=== PATIENT | male | born 2000 | race Caucasian/White ===

== ENCOUNTER 2021-09-15 08:27 | Inpatient (IN) ==
[2021-09-15] MEDS ORDERED: SODIUM CHLORIDE 0.9% 1000ML 1,000 ML IV STA (08:43)
--- NOTE | 2021-09-15 09:04 | Emergency Department Note ---
Impression & Plan Colitis, Hematochezia, Generalized abdominal pain, Severe anemia ED Provider Note INFORMANT: Patient and mother ED PROVIDER(S): Rashad Hansen MD CHIEF COMPLAINT: Diarrhea, bloody PLAN: Disposition: Admitted Condition: Good Outpatient prescription management: none Referral: None MEDICAL DECISION MAKING: Patient presented because of bloody diarrhea. Stool studies ordered. Lab work and CT imaging ordered. Patient was hydrated. CBC reveals a significant anemia. Chemistry panel was unremarkable. Stool studies negative. Patient was reassessed and was stable. His CAT scan revealed a significant colitis. Consultation was made with Dr. Dutton of gastroenterology. He recommended 40 mg of Solu-Medrol twice daily. Patient will need further management by GI and internal medicine in the hospital. I did discuss case with the [facility], Dr. Montgomery. Patient was evaluated in the ER admitted for further management. Triage Nursing notes reviewed and agree them. Vital Signs: reviewed and remarkable for no significant abnormalities Differential diagnosis: Inflammatory bowel disease, infectious diarrhea, diverticulosis, AVM, coagulopathy, colitis, malignancy, Roxy-Duong tear, esophagitis, peptic ulcer disease, variceal bleed, gastritis, epistaxis, fissure, hemorrhoids, as well as other pathologies. Diagnostics interpreted by me: ECG: none Cardiac Monitoring: Cardiac monitoring ordered by me: The patient was placed on continuous cardiac monitoring and observed. It revealed a normal sinus rhythm at 80 beats per minute without ectopy or evidence of dysrhythmia. Imaging studies: CT abdomen and pelvis with contrast: Wall thickening of the entire colon and rectum consistent with a proctocolitis. Wall thickening most pronounced within the ascending colon and hepatic flexure of the colon. Associated distal ileal wall thickening. Ahaustral appearance of the colon. Ulcerative colitis with backwash ileitis is favored. An infectious proctocolitis cord appear similar although is considered less likely. Multiple enlarged colonic/ileocolic lymph nodes are probably reactive however a neoplastic process cannot be completely excluded in the setting of ulcerative colitis. Multifocal luminal narrowing within the right colon is likely due to inflammation although underlying mucosal lesion cannot be excluded. GI consultation for consideration for colonoscopy is recommended. HPI: The patient is a 21year old male who presents to the Emergency Room with complaints of bloody diarrhea. This started over a month ago and is worsening. Patient states he has history of celiac disease. He has been dealing with that for about 10 years. He originally notes not wanting to change his diet however over the last 4 months has made significant modifications without any help. Its been about 2 years since he seen GI. The patient also notes the following associated symptoms, lightheadedness and an episode of syncope last night after becoming lightheaded from a bloody bowel movement. The patient has taken no medication forrelieving factors. Current pain is rated as 2/10. Notes pain was a 6 out of 10. Pt denies LOC, headache, fevers, chills, diaphoresis, visual changes, neck pain, chest pain, breathing difficulties, nausea, vomiting, abdominal pain, back pain, melena, hematochezia, urinary symptoms, numbness, weakness, lymphadenopathy, rash, or other complaints. ROS: See above HPI for pertinent positives & negatives. A total of 10 systems reviewed and were otherwise negative. PAST MEDICAL HISTORY:See Below , celiac disease PAST SURGICAL HISTORY:See Below, FAMILY HISTORY:See Below SOCIAL HISTORY:See Below, lives with family HOME MEDICATIONS:See Below ALLERGIES:See Below VITALS:See Below PHYSICAL EXAMINATION: GENERAL: Awake, alert, well-appearing, in no distress HENT: Normocephalic, atraumatic. Wearing a mask. EYES: Pale conjunctiva. Sclera non-icteric. NECK: Inspection normal. Non-tender. Supple. No nuchal rigidity. FROM. No masses. RESPIRATORY: Clear to auscultation. No wheezes. No rales. Normal respiratory effort. CARDIAC: Normal rate. Normal rhythm. No murmurs. No rubs. Extremities warm and well perfused. Pulses equal. No JVD. GI: Soft, non-distended. Minimal left lower quadrant and mild right sided tenderness to palpation. No rebound or guarding. No masses. RECTAL: Deferred. MUSCULOSKELETAL: Atraumatic. Chest examination reveals no tenderness. The back is symmetrical on inspection without obvious abnormality. There is no CVA tenderness to palpation. No joint edema. LOWER EXTREMITIES: Calves are equal size bilaterally and non-tender. No edema. No discoloration. NEURO: Normal sensorium. No sensory or motor deficits noted. SKIN: No rash or jaundice noted. Rashad Hansen MD Past Med/Surg History Social History Smoking Status: Never smoker Feels Safe at Home: Yes Allergies Allergies Allergy/AdvReac Type Severity Reaction Status Date / Time No Known Allergies Allergy Unverified 09/15/21 13:57 Home Meds Home Medications Medication Instructions Recorded Confirmed dicyclomine 10 mg capsule 10 mg PO BID 09/15/21 09/15/21 dietary supplement 1 tab PO DAILY 09/15/21 09/15/21 Results & Data (ED) Vital Signs Vital Signs - 24 hr 09/15/21 08:30 09/15/21 09:08 09/15/21 10:43 Temperature 36.8 C Temperature Source Temporal Artery Scan Pulse Rate 92 H 80 Pulse Rate [Radial] 80 93 H Pulse Rhythm [Radial] Regular Pulse Strength [Radial] Absent Respiratory Rate 20 16 20 Respiratory Effort / Characteristics Non-Labored Spontaneous Non-Labored Spontaneous Non-Labored Respiratory Depth Normal Normal Normal Respiratory Pattern Regular Regular Blood Pressure 112/69 Blood Pressure [Left Arm] 120/76 119/72 Blood Pressure Mean 83 Blood Pressure Mean [Left Arm] 90 87 Blood Pressure Position [Left Arm] Sitting Pulse Oximetry 99 98 100 Oxygen Delivery Method Room Air Room Air Room Air Sepsis Recent Fever Within 48 Hours No Sepsis New/Unexplained Change in Mental Status No Sepsis Action Taken by Nursing No Action Required 09/15/21 12:29 09/15/21 13:38 09/15/21 14:37 Temperature Temperature Source Pulse Rate Pulse Rate [Radial] 82 80 86 Pulse Rhythm [Radial] Regular Pulse Strength [Radial] Normal Respiratory Rate 20 15 20 Respiratory Effort / Characteristics Non-Labored Non-Labored Spontaneous Non-Labored Respiratory Depth Normal Normal Normal Respiratory Pattern Regular Blood Pressure Blood Pressure [Left Arm] 116/69 123/61 116/92 Blood Pressure Mean Blood Pressure Mean [Left Arm] 84 81 100 Blood Pressure Position [Left Arm] Sitting Pulse Oximetry 99 100 100 Oxygen Delivery Method Room Air Room Air Room Air Sepsis Recent Fever Within 48 Hours Sepsis New/Unexplained Change in Mental Status Sepsis Action Taken by Nursing Laboratory Data Result diagrams: 09/15/21 08:45 09/15/21 08:45 Lab Results 09/15/21 09/15/21 09/15/21 Range/Units 08:45 08:45 09:35 WBC 8.40 (4.8-10.8) K/uL RBC 4.73 (4.7-6.1) M/uL Hgb 7.2 L (14.0-18.0) g/dL Hct 28.0 L (42-52) % MCV 59.2 L (80-100) fL MCH 15.2 L (25-34) pg MCHC 25.7 L (32-36) g/dL RDW Std Deviation 40.9 (36.4-46.3) fL RDW Coeff of Erica 19.0 H (11.5-14.5) % Plt Count 704 H (130-400) K/uL MPV 9.0 (7.4-10.4) fL Immature Gran % (Auto) 0.1 % Neut % (Auto) 64.2 % Lymph % (Auto) 18.3 % Williams % (Auto) 13.7 % Eos % (Auto) 3.0 % Baso % (Auto) 0.7 % Neut # (Auto) 5.39 (1.4-6.5) K/uL Lymph # (Auto) 1.54 (1.2-3.4) K/uL Williams # (Auto) 1.15 H (0.11-0.59) K/uL Eos # (Auto) 0.25 (0-0.5) K/uL Baso # (Auto) 0.06 (0-0.2) K/uL Immature Gran # (Auto) 0.01 (0.00-0.02) K/uL Hypochromasia Present Microcytosis Present Sodium 135 L (136-145) mmol/L Potassium 4.0 (3.5-5.1) mmol/L Chloride 105 (98-107) mmol/L Carbon Dioxide 24 (21-32) mmol/L Anion Gap 6 (3-11) BUN 5 L (6-23) mg/dl Creatinine 0.95 (0.6-1.4) mg/dl Est Cr Clr Drug Dosing 90.5 ml/min Est GFR ( Amer) 133.0 ml/min Est GFR (Non-Af Amer) 114.8 ml/min BUN/Creatinine Ratio 5.3 L (10-20) Glucose 125 H (70-99(Fasting)) mg/dl Calcium 8.9 (8.5-10.1) mg/dl Total Bilirubin 0.3 (0.2-1.0) mg/dl AST 16 (13-39) U/L ALT 9 (7-52) U/L Alkaline Phosphatase 92 (34-104) U/L Total Protein 8.1 (6.0-8.3) gm/dl Albumin 4.0 (3.4-5.0) gm/dl Globulin 4.1 H (2.5-4.0) gm/dl Albumin/Globulin Ratio 1.0 (0.9-2) Lipase 20 (11-82) U/L Urine Color Urine Appearance (Clear) Urine pH (4.5-7.5) Ur Specific [place] (1.000-1.030) Urine Protein (Negative) Urine Glucose (UA) (Negative) Urine Ketones (Negative) Urine Blood (Negative) Urine Nitrite (Negative) Urine Bilirubin (Negative) Urine Urobilinogen (Negative) Ur Leukocyte Esterase (Negative) Stl C. cayetanensis PCR Not Detected (NotDetected) Stool Rotavirus A PCR Not Detected (NotDetected) Stl Adenov F 40/41 PCR Not Detected (NotDetected) Stool Astrovirus (PCR) Not Detected (NotDetected) Stool Campylobacter PCR Not Detected (NotDetected) Stl C. diff Tox A/B PCR Not Detected (NotDetected) Stool Cryptosporidium PCR Not Detected (NotDetected) Stl E.coli Shiga Tox PCR Not Detected (NotDetected) Stl Enterotoxigenic E PCR Not Detected (NotDetected) Stool EPEC (PCR) Not Detected (NotDetected) Stool EAEC (PCR) Not Detected (NotDetected) Stl E. histolytica PCR Not Detected (NotDetected) Stool Giardia Lamblia PCR Not Detected (NotDetected) Stool Salmonella PCR Not Detected (NotDetected) Stool Sapovirus (PCR) Not Detected (NotDetected) Stl P. shigelloides PCR Not Detected (NotDetected) Stl Shigella/EIEC PCR Not Detected (NotDetected) St Y.enterocolitica PCR Not Detected (NotDetected) Stool Vibrio (PCR) Not Detected (NotDetected) Stl Vibrio cholerae PCR Not Detected (NotDetected) Stl Norovirus GI/GII PCR Not Detected (NotDetected) SARS-CoV-2, RNA, NAAT (NEGATIVE) Blood Type Antibody Screen 09/15/21 09/15/21 09/15/21 Range/Units 10:49 13:16 13:21 WBC (4.8-10.8) K/uL RBC (4.7-6.1) M/uL Hgb (14.0-18.0) g/dL Hct (42-52) % MCV (80-100) fL MCH (25-34) pg MCHC (32-36) g/dL RDW Std Deviation (36.4-46.3) fL RDW Coeff of Erica (11.5-14.5) % Plt Count (130-400) K/uL MPV (7.4-10.4) fL Immature Gran % (Auto) % Neut % (Auto) % Lymph % (Auto) % Williams % (Auto) % Eos % (Auto) % Baso % (Auto) % Neut # (Auto) (1.4-6.5) K/uL Lymph # (Auto) (1.2-3.4) K/uL Williams # (Auto) (0.11-0.59) K/uL Eos # (Auto) (0-0.5) K/uL Baso # (Auto) (0-0.2) K/uL Immature Gran # (Auto) (0.00-0.02) K/uL Hypochromasia Microcytosis Sodium (136-145) mmol/L Potassium (3.5-5.1) mmol/L Chloride (98-107) mmol/L Carbon Dioxide (21-32) mmol/L Anion Gap (3-11) BUN (6-23) mg/dl Creatinine (0.6-1.4) mg/dl Est Cr Clr Drug Dosing ml/min Est GFR ( Amer) ml/min Est GFR (Non-Af Amer) ml/min BUN/Creatinine Ratio (10-20) Glucose (70-99(Fasting)) mg/dl Calcium (8.5-10.1) mg/dl Total Bilirubin (0.2-1.0) mg/dl AST (13-39) U/L ALT (7-52) U/L Alkaline Phosphatase (34-104) U/L Total Protein (6.0-8.3) gm/dl Albumin (3.4-5.0) gm/dl Globulin (2.5-4.0) gm/dl Albumin/Globulin Ratio (0.9-2) Lipase (11-82) U/L Urine Color Yellow Urine Appearance Clear (Clear) Urine pH 5.0 (4.5-7.5) Ur Specific [place] 1.010 (1.000-1.030) Urine Protein Negative (Negative) Urine Glucose (UA) Negative (Negative) Urine Ketones Negative (Negative) Urine Blood Negative (Negative) Urine Nitrite Negative (Negative) Urine Bilirubin Negative (Negative) Urine Urobilinogen Negative (Negative) Ur Leukocyte Esterase Negative (Negative) Stl C. cayetanensis PCR (NotDetected) Stool Rotavirus A PCR (NotDetected) Stl Adenov F 40/41 PCR (NotDetected) Stool Astrovirus (PCR) (NotDetected) Stool Campylobacter PCR (NotDetected) Stl C. diff Tox A/B PCR (NotDetected) Stool Cryptosporidium PCR (NotDetected) Stl E.coli Shiga Tox PCR (NotDetected) Stl Enterotoxigenic E PCR (NotDetected) Stool EPEC (PCR) (NotDetected) Stool EAEC (PCR) (NotDetected) Stl E. histolytica PCR (NotDetected) Stool Giardia Lamblia PCR (NotDetected) Stool Salmonella PCR (NotDetected) Stool Sapovirus (PCR) (NotDetected) Stl P. shigelloides PCR (NotDetected) Stl Shigella/EIEC PCR (NotDetected) St Y.enterocolitica PCR (NotDetected) Stool Vibrio (PCR) (NotDetected) Stl Vibrio cholerae PCR (NotDetected) Stl Norovirus GI/GII PCR (NotDetected) SARS-CoV-2, RNA, NAAT NEGATIVE (NEGATIVE) Blood Type A Positive Antibody Screen NEGATIVE Administered Medications Discontinued Medications Sodium Chloride (Nss 1000ml) 1,000 mls @ 999 mls/hr IV .Q1H1M STA Stop: 09/15/21 09:43 Last Infusion: 09/15/21 10:07 Dose: 0 mls/hr Documented by: [id number] Admin: 09/15/21 08:48 Dose: 999 mls/hr Documented by: [id number] Ioversol (Optiray 320 100ml) 94 ml IV ONCE ONE Stop: 09/15/21 11:46 Last Admin: 09/15/21 11:45 Dose: 94 ml Documented by: [id number] Methylprednisolone (Methylprednisolone 40 Mg/Ml Vial) 40 mg IV NOW STA Stop: 09/15/21 13:35 Last Admin: 09/15/21 13:58 Dose: 40 mg Documented by: [id number] Imaging Data Radiologist's Impression: Abdomen/Pelvis CT 09/15/21 08:43 CT OF THE ABDOMEN AND PELVIS WITH CONTRAST CLINICAL HISTORY: Bloody diarrhea. Abdominal pain. COMPARISON STUDY: KUB May 24, 2011. TECHNIQUE: Following IV administration of 94 mL of Optiray, axial images of the abdomen and pelvis were obtained from the lung bases to the proximal femurs. Images were reviewed in the axial, sagittal, and coronal planes. IV contrast was administered without complication. Automated exposure control was utilized for the study. A dose lowering technique was utilized adhering to the principles of ALARA. Oral contrast was administered. CT DOSE: 280.60 mGy.cm FINDINGS: Lung bases are unremarkable. Periportal edema within the liver is noted. No biliary or pancreatic ductal dilatation is present. There are no hepa tic lesions. The spleen, adrenal glands, kidneys and pancreas are normal. No hydronephrosis. Major vasculature is patent. The appendix is unremarkable. There is no evidence for a bowel obstruction. Note is made of wall thickening of the entire colon and the rectum. Ahaustral appearance of the colon is noted. The wall thickening is most pronounced within the ascending colon and hepatic flexure of the colon. This results in minimal narrowing. No evidence for a bowel obstruction. There are numerous enlarged pericolonic and ileocolic lymph nodes. Index ileocolic node measures 1.9 x 1.1 cm. There is no free air. There is no abscess. No evidence for small bowel obstruction. There is also wall thickening of the terminal ileum. This could reflect backwash ileitis. IMPRESSION: Wall thickening of the entire colon and rectum consistent with a p roctocolitis. Wall thickening most pronounced within the ascending colon and hepatic flexure of the colon. Associated distal ileal wall thickening. Ahaustral appearance of the colon. Ulcerative colitis with backwash ileitis is favored. An infectious proctocolitis cord appear similar although is considered less likely. Multiple enlarged colonic/ileocolic lymph nodes are probably reactive however a neoplastic process cannot be completely excluded in the setting of ulcerative colitis. Multifocal luminal narrowing within the right colon is likely due to inflammation although underlying mucosal lesion cannot be excluded. GI consultation for consideration for colonoscopy is recommended. ACT 112: Negative or not required by law. Electronically signed by: Maycol Prieto M.D. 09/15/2021 1:12 PM Discharge Plan Visit Data Chief Complaint: Diarrhea Stated Complaint: DIARRHEA, ABD PAIN, BLOOD IN STOOL ED Provider: Rashad Hansen Discharge Problem: Colitis, Hematochezia, Generalized abdominal pain, Severe anemia Forms Stand Alone Forms: My [facility]antto Prescriptions Prescriptions: No Action dicyclomine 10 mg capsule 10 mg PO BID RF: 0 dietary supplement Tablet 1 tab PO DAILY RF: 0 Referrals Referrals: Bill Murcia MD [Physician] -
[2021-09-15 09:37] LABS: Basophils # (auto) 0.06 K/uL (0-0.2); Basophils % (auto) 0.7 %; Eosinophils # (auto) 0.25 K/uL (0-0.5); Hemoglobin 7.2 g/dL (14.0-18.0); Hypochromasia Present; Immature Granulocytes # (auto) 0.01 K/uL (0.00-0.02); Immature Granulocytes % (auto) 0.1 %; Lymphocytes # (auto) 1.54 K/uL (1.2-3.4); Lymphocytes % (auto) 18.3 %; Mean Corpuscular Hemoglobin 15.2 pg (25-34); Mean Corpuscular Hgb Conc 25.7 g/dL (32-36); Mean Corpuscular Volume 59.2 fL (80-100); Microcytosis Present; Monocytes # (auto) 1.15 K/uL (0.11-0.59); Monocytes % (auto) 13.7 %; Neutrophils # (auto) 5.39 K/uL (1.4-6.5); Neutrophils % (auto) 64.2 %; Platelet Count 704 K/uL (130-400); RDW Standard Deviation 40.9 fL (36.4-46.3); Red Blood Count 4.73 M/uL (4.7-6.1)
[2021-09-15 09:40] LABS: BUN Creatinine Ratio 5.3 (10-20); Bilirubin,Total 0.3 mg/dl (0.2-1.0); Calcium 8.9 mg/dl (8.5-10.1); Creatinine Clr Calc Pharmacy 90.5 ml/min; Est GFR (Non-African American) 114.8 ml/min; Globulin 4.1 gm/dl (2.5-4.0); Total Protein 8.1 gm/dl (6.0-8.3)
[2021-09-15 11:15] LABS: Adenovirus F 40/41 PCR Not Detected (NotDetected); Astrovirus PCR Not Detected (NotDetected); Campylobacter PCR Not Detected (NotDetected); Clostridium diff Toxin A/B PCR Not Detected (NotDetected); Cryptosporidium PCR Not Detected (NotDetected); Cyclospora cayetanensis PCR Not Detected (NotDetected); Entamoeba histolytica PCR Not Detected (NotDetected); Enteroaggregative E.coli(EAEC) Not Detected (NotDetected); Enteropathogenic E.coli (EPEC) Not Detected (NotDetected); Enterotoxigenic E.coli (ETEC) Not Detected (NotDetected); Giardia lamblia PCR Not Detected (NotDetected); Norovirus GI/GII PCR Not Detected (NotDetected); Plesiomonas shigelloides PCR Not Detected (NotDetected); Rotavirus A PCR Not Detected (NotDetected); Salmonella PCR Not Detected (NotDetected); Sapovirus PCR Not Detected (NotDetected); Shiga-like Toxin E.coli (STEC) Not Detected (NotDetected); Shigella/Enteroinvasive E.coli Not Detected (NotDetected); Vibrio cholerae PCR Not Detected (NotDetected); Vibrio species PCR Not Detected (NotDetected); Yersinia enterocolitica PCR Not Detected (NotDetected)
[2021-09-15 11:21] LABS: Appearance Urine Clear (Clear); Bilirubin Urine Negative (Negative); Blood Urine Negative (Negative); Color Urine Yellow; Glucose Urine UA Negative (Negative); Ketones Urine Negative (Negative); Leukocyte Esterase Urine Negative (Negative); Nitrite Urine Negative (Negative); Protein Urine Negative (Negative); Urobilinogen Urine Negative (Negative)
[2021-09-15] MEDS ORDERED: OPTIRAY 320 100ml IV ONE (11:45)
--- NOTE | 2021-09-15 13:14 | CT Scan Report ---
CT OF THE ABDOMEN AND PELVIS WITH CONTRAST CLINICAL HISTORY: Bloody diarrhea. Abdominal pain. COMPARISON STUDY: KUB May 24, 2011. TECHNIQUE: Following IV administration of 94 mL of Optiray, axial images of the abdomen and pelvis we re obtained from the lung bases to the proximal femurs. Images were reviewed in the axial, sagittal, and coronal planes. IV contrast was administered without complication. Automated exposure control wa s utilized for the study. A dose lowering technique was utilized adhering to the principles of ALARA . Oral contrast was administered. CT DOSE: 280.60 mGy.cm FINDINGS: Lung bases are unremarkable. Periportal edema within the liver is noted. No biliary or panc reatic ductal dilatation is present. There are no hepatic lesions. The spleen, adrenal glands, kidney s and pancreas are normal. No hydronephrosis. Major vasculature is patent. The appendix is unremarkab le. There is no evidence for a bowel obstruction. Note is made of wall thickening of the entire colon and the rectum. Ahaustral appearance of the colon is noted. The wall thickening is most pronounced w ithin the ascending colon and hepatic flexure of the colon. This results in minimal narrowing. No priscilla dence for a bowel obstruction. There are numerous enlarged pericolonic and ileocolic lymph nodes. Ind ex ileocolic node measures 1.9 x 1.1 cm. There is no free air. There is no abscess. No evidence for s mall bowel obstruction. There is also wall thickening of the terminal ileum. This could reflect backw sophia ileitis. IMPRESSION: Wall thickening of the entire colon and rectum consistent with a proctocolitis. Wall thi ckening most pronounced within the ascending colon and hepatic flexure of the colon. Associated dista l ileal wall thickening. Ahaustral appearance of the colon. Ulcerative colitis with backwash ileitis is favored. An infectious proctocolitis cord appear similar although is considered less likely. Multi ple enlarged colonic/ileocolic lymph nodes are probably reactive however a neoplastic process cannot be completely excluded in the setting of ulcerative colitis. Multifocal luminal narrowing within the right colon is likely due to inflammation although underlying mucosal lesion cannot be excluded. GI c onsultation for consideration for colonoscopy is recommended. ACT 112: Negative or not required by law. Electronically signed by: Maycol Prieto M.D. 09/15/2021 1:12 PM
--- NOTE | 2021-09-15 16:59 | History and Physical Report ---
DATE OF ADMISSION: 09/15/2021. CHIEF COMPLAINT: Bloody diarrhea, syncope. HISTORY OF PRESENT ILLNESS: This is a 21-year-old male with past medical history significant for GERD, Asperger's disorder, history of maturity onset diabetes, currently not on any medication, history of celiac disease diagnosed many years ago. He was noncompliant with diet, but since last 4-5 months he is started to be on a celiac diet, but his symptoms of abdominal pain, cramps and diarrhea did not got better, it got worse and in the last 1 or 2 weeks he is having bloody diarrhea. Last night there was lot of amount of blood in the stool, after that he felt blank and he think he might have passed out and somehow crawled to the bed and slept for 1 hour that is the reason he came to the hospital. Here his hemoglobin was 7.2. CAT scan showing possible ulcerative colitis. ER talked with GI on-call and recommended Solu-Medrol. Currently, resting comfortably, hemodynamically stable. He looks pale. Denies any headache. No dizziness, no blurred visions, no earache, no runny nose, no sore throat, no cough, no fevers, no chest pain, no shortness of breath. No nausea, no vomiting. Normal bladder movements. No swelling in the legs. Ambulates okay. The patient initially declined to sign the blood consent but later he was ok and signed the consent. ALLERGIES: POLLEN, RAGWEED, CELIAC GLUTEN FREE DIET. PAST MEDICAL HISTORY: As mentioned above. PAST SURGICAL HISTORY: Circumcision, upper endoscopy with biopsy. MEDICATIONS: The patient is on dicyclomine 10 mg b.i.d. FAMILY HISTORY: Significant for paternal grandmother had stomach cancer; maternal grandfather had diabetes. Mother has diabetes, maternal grandfather has heart attack at age of 58. SOCIAL HISTORY: Single, lives with his mom. No smoking, no alcohol, no drug use. REVIEW OF SYSTEMS: As per HPI. Rest of review of systems is negative. PHYSICAL EXAMINATION: GENERAL: The patient is thin and frail, not in acute distress. VITAL SIGNS: Temperature 36.8, pulse 86, respiratory rate 20, blood pressure 116/92, oxygen 98% on room air. HEENT: Pupils equal, round and reactive to light. Oral mucosa moist. LUNGS: No JVD, no neck masses. CARDIOVASCULAR: S1 and S2 heard. Regular rate and rhythm. No murmur, no gallop. RESPIRATORY SYSTEM: Normal AP diameter. No accessory muscle use. No wheezing, no crackles. ABDOMEN: Soft. Bowel sounds are present, nontender, no distention. CENTRAL NERVOUS SYSTEM: Cranial nerves II-XII grossly intact, nonfocal. EXTREMITIES: No edema, no erythema. LABORATORY: WBC 8.4, hemoglobin 7.2, hematocrit 22, platelets 704. Sodium 135, potassium 4, chloride 105, bicarb 24, BUN 5, creatinine 0.9, serum glucose 125, calcium 8.9, total bilirubin 0.3, AST 16, ALT 9, alkaline phosphatase 92, lipase 20. Urinalysis negative. Stool cultures negative. SARS-CoV-2 RNA negative. IMAGING: CT of abdomen and pelvis, wall thickening of the entire colon and rectum consistent with proctocolitis, wall thickening most pronounced within the ascending colon and hepatic flexure of the colon, associated distal ileal wall thickening, ulcerative colitis/ileitis is favored, infectious proctocolitis appear similar though, all this is considered less likely. Multiple enlarged colonic and inguinal lymph nodes are probably reactive; however, neoplastic process cannot be completely excluded. GI consultation recommended. ASSESSMENT AND PLAN: This 21-year-old male who presents with bloody diarrhea going on for the last couple of weeks. CAT scan showing colitis, possible ulcerative colitis. 1. Possible ulcerative colitis, bloody diarrhea going on. He was diagnosed with celiac disease many years ago, noncompliant with diet, 4-6 months ago started on diet, but since symptoms are not getting better and having blood in stools came to ER. ER called GI on-call and recommended Solu-Medrol 40 b.i.d. which will be continued. We will give him clear liquid diet for now. IV fluids, IV Dilaudid 0.5 mg q. 6 hours p.r.n. Consult GI for further recommendation, placed on IV Protonix 40 b.i.d. for now. 2. Anemia, most likely acute blood loss anemia. The patient initially declined to sign blood consent but later signed. We will follow H and H for 6 hours. Will transfuse if hb <7.0 We will check iron studies, vitamin B12, folate levels. If iron is low may need IV Venofer while in the hospital. 3. History of maturity onset diabetes mellitus in young. His HbA1c is 6.5 in 10/2020. Not on medications. With anemia his HbA1c will not be accurate, we will follow the blood sugars, needs to follow with family doctor. 4. Syncope. The patient also had an episode of possible syncope, most likely vasovagal. We will monitor in tele floor. If any concern, will get echocardiogram. 5. Deep venous thrombosis prophylaxis: Sequential compression devices. DISPOSITION: Closely monitor in med tele. PT/OT prior to discharge. Social Service to help with discharge planning. Job ID: [id number] LUCIANO
[2021-09-15] MEDS ORDERED: HYDROmorphone INJ 0.5 MG/0.5 ML SYR IV PRN (18:20)
[2021-09-15] MEDS ORDERED: ACETAMINOPHEN 325 MG TAB PO PRN (18:20)
[2021-09-15] MEDS ORDERED: NITROGLYCERIN SL 0.4 MG/TAB TAB SL PRN (18:20)
[2021-09-15] MEDS: SODIUM CHLORIDE 0.9% 1000ML 1,000 ML IV SCH (18:31)
[2021-09-15 19:35] LABS: Iron < 10 mcg/dl (35-175); Unsaturated Iron Binding Cap 479 mcg/dl (155-355)
[2021-09-15 19:36] LABS: Hematocrit (blood only) 27.6 % (42-52); Hemoglobin 7.4 g/dL (14.0-18.0)
[2021-09-15 19:45] LABS: Folate (Folic Acid) > 22.30 ng/ml (>5.38)
[2021-09-15 19:46] LABS: Vitamin B12 762 pg/ml (180-914)
[2021-09-15] MEDS: PANTOprazole 40 MG in SYRINGE 0 ML IV SCH (22:22)
[2021-09-15] MEDS: DICYCLOMINE HCL 10 MG CAP PO SCH (22:22)
[2021-09-15] MEDS: methylPREDNISolone 40 MG in SYRINGE 0 ML IV SCH (22:22)
[2021-09-15] MEDS ORDERED: CARBOHYDRATES FOR HYPOGLYCEMIA PO PRN (23:05)
[2021-09-15] MEDS ORDERED: DEXTROSE 50% 50 ML SYRINGE IV PRN (23:05)
[2021-09-15] MEDS ORDERED: GLUCOSE 10 TABS/TUBE PO PRN (23:05)
[2021-09-15] MEDS ORDERED: GLUCOSE 40% GEL 15 GM TUBE PO PRN (23:05)
[2021-09-15] MEDS ORDERED: GLUCAGON FOR INJ 1 MG VIAL SQ PRN (23:05)
--- NOTE | 2021-09-15 23:18 | Billing Data ---
Date of Service September 15, 2021 Coding Level of Care Code 61769 Inpt Consult Level 4
[2021-09-16] MEDS: INSULIN ASPART PER UNIT SC SCH ×5 (00:17→21:50)
[2021-09-16] MEDS: INSULIN GLARGINE SOLOSTAR 100 UNITS/ML 3 ML PEN SC SCH ×2 (00:18→21:50)
[2021-09-16] MEDS ORDERED: GABAPENTIN 100 MG CAP PO STA (00:56)
[2021-09-16 00:58] LABS: Hematocrit (blood only) 27.4 % (42-52); Hemoglobin 7.1 g/dL (14.0-18.0)
[2021-09-16 06:21] LABS: Hematocrit (blood only) 24.8 % (42-52); Hemoglobin 6.6 g/dL (14.0-18.0); Mean Corpuscular Hgb Conc 26.6 g/dL (32-36); Mean Corpuscular Volume 60.2 fL (80-100); Mean Platelet Volume 8.9 fL (7.4-10.4); Platelet Count 719 K/uL (130-400); RDW Coefficient of Variation 18.7 % (11.5-14.5); RDW Standard Deviation 41.2 fL (36.4-46.3); Red Blood Count 4.12 M/uL (4.7-6.1); White Blood Count 4.51 K/uL (4.8-10.8)
[2021-09-16] MEDS ORDERED: SODIUM CHLORIDE 0.9% 250 ML IV PRN (06:26)
[2021-09-16 06:32] LABS: Hypochromasia Present; Immature Granulocytes # (auto) 0.01 K/uL (0.00-0.02); Immature Granulocytes % (auto) 0.2 %; Lymphocytes # (auto) 0.95 K/uL (1.2-3.4); Lymphocytes % (auto) 21.1 %; Microcytosis Present; Monocytes # (auto) 0.15 K/uL (0.11-0.59); Monocytes % (auto) 3.3 %; Neutrophils % (auto) 75.4 %
[2021-09-16 06:41] LABS: Anion Gap 5 (3-11); Blood Urea Nitrogen 7 mg/dl (6-23); Calcium 8.8 mg/dl (8.5-10.1); Carbon Dioxide 23 mmol/L (21-32); Chloride 109 mmol/L (98-107); Est GFR (African American) > 150.0 ml/min; Est GFR (Non-African American) 129.9 ml/min; Glucose 144 mg/dl (70-99(Fasting)); Potassium 4.5 mmol/L (3.5-5.1); Sodium 137 mmol/L (136-145)
[2021-09-16] MEDS: methylPREDNISolone 40 MG in SYRINGE 0 ML IV SCH ×2 (08:21→20:44)
[2021-09-16] MEDS: DICYCLOMINE HCL 10 MG CAP PO SCH ×2 (08:21→20:45)
[2021-09-16] MEDS: PANTOprazole 40 MG in SYRINGE 0 ML IV SCH ×2 (08:21→20:44)
[2021-09-16] MEDS: SODIUM CHLORIDE 0.9% 1000ML 1,000 ML IV SCH ×5 (08:26→20:42)
--- NOTE | 2021-09-16 10:44 | Consultation Report ---
Gastroenterology Consultation AGE: 21. SEX: Male. RACE: . ATTENDING PHYSICIAN: Dao Montgomery MD. CONSULTING PHYSICIAN: Rodrick Dutton DO. REASON FOR CONSULTATION: Colitis. HISTORY OF PRESENT ILLNESS: The patient is a 21-year-old male with a significant past medi chiquis history for GERD and a history of celiac disease, which was diagnosed a few years ago. He is not followed a gluten free diet throughout his life following the diagnosis, but did note that he was young ving approximately 2 to 3 weeks of abdominal pain, cramping and diarrhea, which subsequently resulted in hematochezia, which prompted him to come to the ER. Upon arrival to the department of emergency m edicine he was noted to have a hemoglobin of 7.[address] scan of the abdomen and pelvis showed signi ficant inflammation throughout the colon with questionable backwash ileitis. I was consulted lauri patel the CT scan and saw the patient at his bedside and at that time he was accompanied by his mom. He stated that he was feeling slightly improved after receiving IV fluids and IV steroid therapy. He d id state that he continued to have mild abdominal pain throughout, which he rated as 2-3/10, but noth ing as severe as what he had prior to coming in. He continued to have some loose stools while in the ER and did have some blood noted at that time as well. He denies any fevers, chills, nausea, vomiti ng, hematemesis, melena, joint pain, eye pain or skin rashes. He states that he has not had any sick contacts recently and stool studies in the ER were negative for any enteric pathogens or C. diff. H e denies any further complaints. PAST MEDICAL HISTORY: Significant for anemia and celiac disease. PAST SURGICAL HISTORY: None. ALLERGIES: None. MEDICATIONS: At home include dicyclomine 10 mg p.o. b.i.d. p.r.n. SOCIAL HISTORY: He denies any tobacco or illicit drug use. He has an occasional alcoholic beverage. 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 FAMILY HISTORY: Negative for GI malignancy or inflammatory bowel disease. REVIEW OF SYSTEMS: Negative x12 system review other than pertinent positives as listed in the HPI. PHYSICAL EXAMINATION: VITAL SIGNS: Include a temperature of 36.6, pulse 90, respirations 17, blood pressure 122/72 and a p ulse ox of 99% on room air. GENERAL: He is pleasant, cooperative. He has notable pallor in no acute distress. HEENT: Head normocephalic, atraumatic. Eyes: Pupils equally round. Extraocular muscles are intact . ENT: External evaluation of ears and nose is normal. Oropharynx is clear. NECK: Soft and supple. There is no JVD or lymphadenopathy. CHEST: Clear to auscultation bilaterally. CARDIAC: Regular rate and rhythm. ABDOMEN: Soft, tender throughout, nondistended, positive bowel sounds. There is no appreciable hepat osplenomegaly. EXTREMITIES: No clubbing, cyanosis or edema. His radiographic studies and laboratory studies were reviewed in the HPI. IMPRESSION: A 21-year-old male with a past medical history of celiac disease, who presents with diarrhea, abdominal pain and hematochezia with CT imaging showing colitis. PLAN: It is most probable that the patient has ulcerative colitis, though Crohn's disease also would be in the differential diagnosis as would an infectious colitis or less likely an ischemic colitis. At the present time, I would recommend that the patient be admitted. I would recommend that he rece isaura Solu-Medrol 40 mg IV b.i.d. I would also recommend that he undergo a bowel prep during this hospi talization and undergo a colonoscopy with biopsies for further evaluation of the source of his findin gs. I would recommend a clear liquid diet at this time, I do not believe the patient needs any antibi otics at this time and I will follow his clinical course and make further recommendations as needed. I did discuss this plan with both the patient and his mom and they were in agreement. Once again for allowing me to participate in the care of this patient. If you have any further quest ions, please do not hesitate contacting me. Job ID: [id number]
--- NOTE | 2021-09-16 12:57 | Gastroenterology Progress Note ---
Date of Service September 16, 2021 Assessment & Plan (1) Severe anemia: (2) Generalized abdominal pain: (3) Hematochezia: (4) Colitis: Plan: Continue Solu-Medrol 40 mg IV BID now Clear liquid diet as tolerated Bowel prep today and colonoscopy in the AM I discussed this case with Dr. Sweet who will perform Colonoscopy in the AM Continue current management and supportive care. Admission and Anticipated Discharge Date Admission Date: September 15, 2021 Subjective Still with some generalized abdominal pain, though less than yesterday. Still with diarrhea, with associated blood. H/H did drop overnight, and he is receiving the 1st of 2 u PRBC. He is tolerating clear liquids at this time. Discussed that he will undergo a bowel prep later today and colonoscopy in the AM, and he was agreeable. Mother was at bedside, and all questions were answered. Review of Systems Constitutional: as per Subjective / HPI Eyes: as per Subjective / HPI Ear, Nose, Mouth, Throat: as per Subjective / HPI Respiratory: as per Subjective / HPI Cardiovascular: as per Subjective / HPI Gastrointestinal: as per Subjective / HPI Musculoskeletal: as per Subjective / HPI Integumentary: as per Subjective / HPI Neurologic: as per Subjective / HPI Psychiatric: as per Subjective / HPI Endocrine: as per Subjective / HPI Hematologic / Lymphatic: as per Subjective / HPI Allergy / Immunological: as per Subjective / HPI Physical Exam Constitutional: WD/WN, vitals as above Respiratory: normal respiratory effort, lungs clear to auscultation Cardiovascular: RRR, no murmur, no edema Gastrointestinal (Abdomen): normal bowel sounds, soft, nontender, no hepatosplenomegaly Skin: + pallor Psychiatric: A+Ox3, euthymic affect Results & Data Results & Data ([facility]) Vital Signs (Past 12 Hours) Vital Signs Temp Pulse Pulse Resp BP BP Pulse Ox 09/16/21 12:20 36.3 C L 89 18 110/67 98 09/16/21 11:50 36.8 C 93 H 18 121/74 100 09/16/21 11:35 36.7 C 89 17 113/72 100 09/16/21 11:20 36.8 C 96 H 18 112/65 99 09/16/21 07:51 36.6 C 97 H 18 103/63 99 09/16/21 03:43 36.7 C 81 18 104/61 98 PG Care Time/CCT Total # of Minutes Spent Total Time Spent with Patient: Total time spent is greater than 50% in coordination of care (as documented) at patient's floor/unit and/or counseling patient: Coding Level of Care Code 71548 Subseq Hosp Care Lvl 3 Diagnoses Severe anemia D64.9 Generalized abdominal pain R10.84 Hematochezia K92.1 Colitis K52.9
[2021-09-16 15:30] LABS: Hematocrit (blood only) 30.3 % (42-52); Hemoglobin 8.2 g/dL (14.0-18.0)
[2021-09-16] MEDS ORDERED: bisacodyL 5 MG TABEC PO ONE (16:00)
[2021-09-16] MEDS ORDERED: POLYETHYLENE (MIRALAX) 17 GM PACK PO ONE (18:00)
[2021-09-16 19:58] LABS: Hematocrit (blood only) 30.3 % (42-52); Hemoglobin 8.5 g/dL (14.0-18.0)
--- NOTE | 2021-09-16 20:59 | Hospitalist Progress Note ---
Date of Service September 16, 2021 Assessment & Plan (1) Colitis: Plan: Patient is a 21 yr male with H/O celiac disease presents with bloody diarrhea going on for the last couple of weeks. CAT scan showing colitis, possible ulcerative colitis. Colitis Acute blood loss anemia ? Ulcerative colitis Diarrhea H/O Celiac Disease --CT ABD:Wall thickening of the entire colon and rectum consistent with a proctocolitis. Wall thickening most pronounced within the ascending colon and hepatic flexure of the colon. Associated distal ileal wall thickening. Ahaustral appearance of the colon. Ulcerative colitis with backwash ileitis is favored. An infectious proctocolitis cord appear similar although is considered less likely. Multiple enlarged colonic/ileocolic lymph nodes are probably reactive however a neoplastic process cannot be completely excluded in the setting of ulcerative colitis. Multifocal luminal narrowing within the right colon is likely due to inflammation although underlying mucosal lesion cannot be excluded. GI consultation for consideration for colonoscopy is recommended. -- Stool studies negative. Continue IV Solu-Medrol Clear liquid diet for now Plan for colonoscopy tomorrow Appreciate GI input N.p.o. after midnight Continue PPI Pain control Transfuse PRBCs as needed Monitor CBC Anemia work-up suggestive of iron deficiency anemia Consider starting iron supplements as able Severe protein calorie malnutrition H/O Celiac disease Admits to being noncompliant with celiac diet BMI 16.8 Dietitian consulted 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 HbA1c is 6.5 in 10/2020 Not on medications HbA1c unreliable secondary to anemia Monitor BGs ISS Syncope Mostly vasovagal. Monitor on telemetry DVT Px: SCDs for now Admission and Anticipated Discharge Date Admission Date: September 15, 2021 Subjective Patient is seen and examined at bedside States having minimal blood in stools this morning Feels tired Family at bedside Denies any significant abdominal pain Also denies any chest pain, shortness of breath, dizziness Review of Systems Review of Systems: All systems reviewed & are unremarkable except as noted in Subjective Physical Exam Physical Exam: Physical Exam: Vitals signs as noted above General Appearance:Thin, Frail, no apparent distress Head: normocephalic, Atraumatic Eyes: normal inspection, EOMI, +Pallor Neck: supple, Trachea midline Respiratory/Chest: Normal breath sounds, CTA, No accessory muscle use Cardiovascular: S1, S2, No murmur Abdomen/GI:Soft, Non tender, Bowel sounds present Extremities/Musculoskeletal:normal inspection, no edema Neurologic/Psych:AAOX3, grossly no focal neurological deficits Skin: normal color, warm Results & Data Results & Data ([facility]) Vital Signs (Past 12 Hours) Vital Signs Temp Pulse Pulse Resp BP BP Pulse Ox 09/16/21 16:29 37.1 C 101 H 19 104/65 97 09/16/21 14:21 36.7 C 87 18 110/64 98 09/16/21 14:10 80 09/16/21 13:20 36.7 C 85 16 109/66 98 09/16/21 12:20 36.3 C L 89 18 110/67 98 09/16/21 11:50 36.8 C 93 H 18 121/74 100 09/16/21 11:35 36.7 C 89 17 113/72 100 09/16/21 11:20 36.8 C 96 H 18 112/65 99 Laboratory Results Short CBC 09/16/21 09/16/21 09/16/21 Range/Units 00:35 05:45 15:11 WBC 4.51 L (4.8-10.8) K/uL Hgb 7.1 L 6.6 L* 8.2 L (14.0-18.0) g/dL Hct 27.4 L 24.8 L 30.3 L (42-52) % Plt Count 719 H (130-400) K/uL 09/16/21 Range/Units 19:46 WBC (4.8-10.8) K/uL Hgb 8.5 L (14.0-18.0) g/dL Hct 30.3 L (42-52) % Plt Count (130-400) K/uL BMP 09/16/21 05:45 Sodium 137 Potassium 4.5 Chloride 109 H Carbon Dioxide 23 BUN 7 Creatinine 0.78 Glucose 144 H Calcium 8.8
[2021-09-17] MEDS ORDERED: POLYETHYLENE (MIRALAX) 17 GM PACK PO ONE
[2021-09-17] MEDS: SODIUM CHLORIDE 0.9% 1000ML 1,000 ML IV SCH (04:43)
--- NOTE | 2021-09-17 07:41 | Anesthesiology Consultation ---
Date of Service September 17, 2021 Assessment & Plan Chart Review Chart Review: Acceptable Risk for Surgery Consults Requested none ASA ASA2 Proposed Anesthesia Anesthesia Type: MAC Risk / Benefits Reviewed With: PT / POA / Parent / Guardian, Accepts Plan and Informed Consent Obtained History Surgery Operation Date: 09/17/21 16:00 Proposed Procedures p Colonoscopy Dr Sweet - Kota Sweet MD Height/Weight Height: 5 ft 9 in Weight: 52.8 kg Allergies Allergy/AdvReac Type Severity Reaction Status Date / Time No Known Allergies Allergy Unverified 09/15/21 13:57 Medications Home Medications Medication Instructions Recorded Confirmed Last Taken dicyclomine 10 mg capsule 10 mg PO BID 09/15/21 09/15/21 Unknown dietary supplement 1 tab PO DAILY 09/15/21 09/15/21 Unknown Active Medications Generic Name Dose Route Start Last Admin Trade Name Freq PRN Reason Stop Dose Admin Dicyclomine HCl 10 mg 09/15/21 21:00 09/16/21 20:45 Dicyclomine Hcl 10 Mg Cap PO 10/15/21 20:59 10 mg BID CLAUDIA Administration Sodium Chloride 1,000 mls @ 125 mls/hr 09/15/21 18:20 09/17/21 04:43 Nss 1000ml IV 10/15/21 18:19 125 mls/hr .Q8H CLAUDIA Administration Pantoprazole Sodium 40 mg/ 10 mls @ 5 mls/min 09/15/21 21:00 09/16/21 20:44 Syringe IV 10/15/21 20:59 5 mls/min BID CLAUDIA Administration Methylprednisolone 40 mg/ 0.64 mls @ 1.5 mls/min 09/15/21 21:00 09/16/21 20:44 Syringe IV 10/15/21 20:59 1.5 mls/min Q12H CLAUDIA Administration Insulin Aspart 0 units 09/15/21 23:10 09/16/21 21:50 Insulin Aspart Per Unit SC 10/15/21 23:09 1 units ACHS CLAUDIA Administration Insulin Glargine 5 units 09/15/21 23:05 09/16/21 21:50 Insulin Glargine Solostar 100 Units/Ml 3 Ml Pen SC 10/15/21 23:04 5 units HS CLAUDIA Administration NPO Date Last Intake of Fluids: 09/16/21 Time Last Intake of Fluids: 23:59 Date Last Intake of Solids: 09/14/21 Time Last Intake of Solids: 16:00 Past Medical History Medical History (Updated 09/17/21 @ 07:40 by Rosalind Sullivan DO) Celiac disease Colitis Generalized abdominal pain Hematochezia Severe anemia Exercise / Class Metabolic Activity 1 > 8 Run/Swim/Ski/Tennis Past Anesthesia History No Hx of Anesthesia Complications and No Family Hx of Anesthesia Complications History of PONV No Hx of PONV and No Hx of Motion Sickness Social History Smoking Status: Never smoker Hx Alcohol Use: Yes Alcohol type: other alcohol intake frequency: a few times a month Hx Substance Use: No Physical Exam Vital Signs Last Vital Signs Temp 36.6 C 09/17/21 08:19 Pulse 81 09/17/21 08:19 Resp 18 09/17/21 08:19 BP 109/63 09/17/21 08:19 Pulse Ox 97 09/17/21 08:19 ENMT Mouth: no TMJ abnormality Thyromental Distance: > or= 3.5 Finger Breadths Mallampati Class: II Neck normal visual inspection and trachea midline; neck extension not limited Respiratory normal respiratory effort Auscultation: lungs clear to auscultation bilaterally Cardiovascular Rate/Rhythm: regular rate and regular rhythm Heart Sounds: no murmur Musculoskeletal Spine: normal cervical ROM Extremities: full ROM of extremities Neurologic moves all extremities Psychiatric Orientation: alert and oriented x 3 Testing Laboratory Results 09/17/21 07:14 09/17/21 07:14 Urine Color Yellow 09/15/21 10:49 Urine Appearance Clear (Clear) 09/15/21 10:49 Urine pH 5.0 (4.5-7.5) 09/15/21 10:49 Ur Specific Lena 1.010 (1.000-1.030) 09/15/21 10:49 Urine Protein Negative (Negative) 09/15/21 10:49 Urine Glucose (UA) Negative (Negative) 09/15/21 10:49 Urine Ketones Negative (Negative) 09/15/21 10:49 Urine Nitrite Negative (Negative) 09/15/21 10:49 Ur Leukocyte Esterase Negative (Negative) 09/15/21 10:49 Blood Type A Positive 09/15/21 13:16 Antibody Screen NEGATIVE 09/15/21 13:16 09/17/21 09/16/21 07:38 20:53 POC Glucose 139 H 147 H covid neg on admission
[2021-09-17 08:03] LABS: Hematocrit (blood only) 26.3 % (42-52); Hemoglobin 7.3 g/dL (14.0-18.0); Mean Corpuscular Hemoglobin 17.3 pg (25-34); Mean Corpuscular Hgb Conc 27.8 g/dL (32-36); Mean Corpuscular Volume 62.3 fL (80-100); Mean Platelet Volume 8.9 fL (7.4-10.4); Platelet Count 636 K/uL (130-400); RDW Coefficient of Variation 21.3 % (11.5-14.5); RDW Standard Deviation 47.3 fL (36.4-46.3); Red Blood Count 4.22 M/uL (4.7-6.1); White Blood Count 6.46 K/uL (4.8-10.8)
[2021-09-17] MEDS ORDERED: PROPOFOL IV EMULSION 10 MG/ML 20 ML VIAL IV ONE (08:15)
[2021-09-17 08:23] LABS: Anion Gap 4 (3-11); BUN Creatinine Ratio 11.1 (10-20); Blood Urea Nitrogen 8 mg/dl (6-23); Calcium 8.7 mg/dl (8.5-10.1); Carbon Dioxide 25 mmol/L (21-32); Chloride 109 mmol/L (98-107); Creatinine Clr Calc Pharmacy 122.2 ml/min; Est GFR (African American) > 150.0 ml/min; Est GFR (Non-African American) 134.3 ml/min; Glucose 133 mg/dl (70-99(Fasting)); Sodium 138 mmol/L (136-145)
[2021-09-17 08:29] LABS: Estimated Average Glucose 146 mg/dl; Hemoglobin A1C 6.7 % (4.5-5.6)
[2021-09-17 08:34] LABS: Ferritin 3.6 ng/ml (8-388)
--- NOTE | 2021-09-17 08:35 | History & Physical Report ---
Date of Service September 17, 2021 Assessment & Plan Admission and Anticipated Discharge Date Admission Date: September 15, 2021 History of Present Illness Primary Care Provider: Soham Zuñiga DO Diarrhea CV: RRR Abd: soft Extrem: no edema A/P: ? UC, diarrhea + bleeding = csocpy Allergies Allergy/AdvReac Type Severity Reaction Status Date / Time No Known Allergies Allergy Unverified 09/15/21 13:57 Home Medications Medication Instructions Recorded Confirmed Type dicyclomine 10 mg capsule 10 mg PO BID 09/15/21 09/15/21 History dietary supplement 1 tab PO DAILY 09/15/21 09/15/21 History Past Med/Surg History Medical History (Updated 09/17/21 @ 07:40 by Rosalind Sullivan DO) Celiac disease Colitis Generalized abdominal pain Hematochezia Severe anemia Social History Smoking Status: Never smoker Hx Alcohol Use: Yes Alcohol type: other Hx Substance Use: No Communication Ability: Effective Legal Service Specialist Required: No Beliefs That Will Affect Care: None marital status: Single Current Living Situation: Parent Other Information That Helps Us Care for You: No Feels Safe at Home: Yes Safety Concerns: Feels Safe At This Time Assistive Devices: None Results & Data Results & Data ([facility]) Vital Signs (Past 12 Hours) Vital Signs Temp Pulse Pulse Resp BP Pulse Ox 09/17/21 08:29 36.4 C L 95 H 16 128/75 100 09/17/21 08:19 36.6 C 81 18 109/63 97 09/17/21 04:35 36.8 C 73 16 108/64 97 09/17/21 00:00 36.5 C 83 20 115/73 98 09/16/21 22:20 73 Code Status & VTE Plan VTE Prophylaxis Plan VTE Prophylaxis will be ordered: Yes
[2021-09-17] MEDS: INSULIN ASPART PER UNIT SC SCH ×4 (08:37→21:05)
[2021-09-17] MEDS ORDERED: LIDOCAINE 2% 2 ML VIAL/AMP(20MG/ML) INFIL ONE (08:49)
--- NOTE | 2021-09-17 09:24 | GI REPORT ---
Patient Name: Conner Ashley Procedure Date: 09/17/2021 8:45 AM Date of : 2000 Admit Type: Inpatient Age: 21 Gender: Male Attending MD: Kota Sweet MD Procedure: Colonoscopy Providers: Kota Sweet MD Referring MD: Kostas Osman Md Indications: Abnormal CT of the GI tract Medicines: See the Anesthesia note for documentation of the administered medications Complications: No immediate complications. Estimated Blood Loss: Estimated blood loss: none. Procedure: Pre-Anesthesia Assessment: - ASA Grade Assessment: III - A patient with severe systemic disease. After I obtained informed consent, the scope was passed under direct vision. Throughout the procedure, the patient's blood pressure, pulse, and oxygen saturations were monitored continuously. The Colonoscope was introduced through the anus with the intention of advancing to the cecum. The scope was advanced to the descending colon before the procedure was aborted. Medications were given. The Endoscope was introduced through the anus with the intention of advancing to the cecum. The scope was advanced to the descending colon before the procedure was aborted. Medications were given. The colonoscopy was performed without difficulty. The patient tolerated the procedure well. The quality of the bowel preparation was good. Findings: There was a posterior midline acute anal fissure. The perianal skin was thickened, and mildly red and indurated. There were perianal skin tags. The anus was patulous. There mucosa of the entire examined colon was denuded and friable. There was complete loss of vascular markings and haustral folds. There was a single small ulcer in the sigmoid colon. There was a narrowing in the low descending colon that could not be traversed with an upper endoscope. Random biopsies done. Impression: Anal fissure. Severe colitis in examined portion of colon. Low left sided stricture that could not be traversed. Recommendation: - Discharge patient to floor. - Continue steroids, anticipate biologics. - Consider colorectal surgery consult. Bhanu Norris MD 09/17/2021 9:24:02 AM This report has been signed electronically. Note Initiated On: 09/17/2021 8:45 AM Number of Addenda: 0 I attest to the content of the Intraoperative Record and orders documented therein, exceptions below {[id number]}
--- NOTE | 2021-09-17 09:29 | Anesthesiology Progress Note ---
Date of Service September 17, 2021 Anesthesia Post Procedure Vital Signs Vital Signs: Temp Pulse Pulse Resp BP BP Pulse Ox 09/17/21 09:17 69 18 96/48 L 97 09/17/21 09:05 74 18 97/47 L 97 09/17/21 08:29 36.4 C L 95 H 16 128/75 100 09/17/21 08:19 36.6 C 81 18 109/63 97 09/17/21 04:35 36.8 C 73 16 108/64 97 09/17/21 00:00 36.5 C 83 20 115/73 98 09/16/21 22:20 73 09/16/21 16:29 37.1 C 101 H 19 104/65 97 09/16/21 14:21 36.7 C 87 18 110/64 98 09/16/21 14:10 80 09/16/21 13:20 36.7 C 85 16 109/66 98 09/16/21 12:20 36.3 C L 89 18 110/67 98 09/16/21 11:50 36.8 C 93 H 18 121/74 100 09/16/21 11:35 36.7 C 89 17 113/72 100 09/16/21 11:20 36.8 C 96 H 18 112/65 99 Pain Intensity Abdomen: Pain Intensity: 0 Transfer of Care Handoff Completed per policy Notes Mental Status: alert / awake / arousable Patient Amnestic to Procedure: Yes Nausea / Vomiting: adequately controlled Pain: adequately controlled Airway Patency, RR, SpO2: stable & adequate BP & HR: stable & adequate Hydration State: stable & adequate Anesthetic Complications: no major complications apparent and Pt Satisfied with anesthetic care
[2021-09-17 10:54] LABS: Albumin Level 3.2 gm/dl (3.4-5.0); C Reactive Protein 0.83 mg/dl (0-0.5); Immunoglobulin A 248.9 mg/dl (70-400)
[2021-09-17] MEDS ORDERED: IRON SUCROSE 300 MG in SODIUM CHLORIDE 0.9% 250 ML IV ONE (11:00)
[2021-09-17] MEDS: methylPREDNISolone 40 MG in SYRINGE 0 ML IV SCH ×2 (11:23→20:32)
[2021-09-17] MEDS: PANTOprazole 40 MG in SYRINGE 0 ML IV SCH (11:23)
--- NOTE | 2021-09-17 11:26 | Gastroenterology Progress Note ---
Date of Service September 17, 2021 Assessment & Plan Admission and Anticipated Discharge Date Admission Date: September 15, 2021 Subjective Pt improved from admit - less pain. In good spirits, no complaints. PE: Thin, NAD Abd: non tender Albumin 3.2 Hgb 7.3 CRP 0.83 A/P: H/o poorly controlled celiac IBD, new diagnosis - likely Crohn's, perianal + ileo-colonic disease Narrow colonic stricture - Cont IV steroids for now, follow symptom response and recheck albumin and CRP in 48 hours. Anticipate 3-4 days of IV steroids. Will plan to begin infliximab 10mg/kg prior to discharge, consider rapid induction pending response. - EGD + Enteroscopy in am - eval severity of celiac. Micronutrient screen + fecal elastase as outpt. Dietitian consult for counselling regarding GFD. - Micronutrient screen as outpt. Iron infusion, consider MVI infusion and empiric zinc replacement. Results & Data ([facility]) Vital Signs (Past 12 Hours) Vital Signs Temp Pulse Resp BP Pulse Ox 09/17/21 09:31 70 16 104/60 99 09/17/21 09:17 69 18 96/48 L 97 09/17/21 09:05 74 18 97/47 L 97 09/17/21 08:29 36.4 C L 95 H 16 128/75 100 09/17/21 08:19 36.6 C 81 18 109/63 97 09/17/21 04:35 36.8 C 73 16 108/64 97 09/17/21 00:00 36.5 C 83 20 115/73 98
[2021-09-17] MEDS: DICYCLOMINE HCL 10 MG CAP PO SCH ×2 (11:32→20:33)
[2021-09-17 14:26] LABS: Hematocrit (blood only) 28.5 % (42-52); Hemoglobin 7.8 g/dL (14.0-18.0)
[2021-09-17] MEDS: CIPROFLOXACIN / D5W 400 MG/200 ML BAG IV SCH ×2 (14:48→21:58)
--- NOTE | 2021-09-17 17:31 | Hospitalist Progress Note ---
Date of Service September 17, 2021 Assessment & Plan (1) Colitis: Plan: Patient is a 21 yr male with H/O celiac disease presents with bloody diarrhea going on for the last couple of weeks. CAT scan showing colitis, possible ulcerative colitis. Inflammatory bowel disease colitis Acute blood loss anemia ? Ulcerative colitis/Crohn's disease H/O Celiac Disease Anal Fissure Single small ulcer in the sigmoid colon Stricture of colon --CT ABD:Wall thickening of the entire colon and rectum consistent with a proctocolitis. Wall thickening most pronounced within the ascending colon and hepatic flexure of the colon. Associated distal ileal wall thickening. Ahaustral appearance of the colon. Ulcerative colitis with backwash ileitis is favored. An infectious proctocolitis cord appear similar although is considered less likely. Multiple enlarged colonic/ileocolic lymph nodes are probably reactive however a neoplastic process cannot be completely excluded in the setting of ulcerative colitis. Multifocal luminal narrowing within the right colon is likely due to inflammation although underlying mucosal lesion cannot be excluded. GI consultation for consideration for colonoscopy is recommended. -- Stool studies negative. --S/P Colonoscopy:Anal fissure. Severe colitis in examined portion of colon. Low left sided stricture that could not be traversed. 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 HbA1c is 6.5 in 10/2020 Not on medications HbA1c unreliable secondary to anemia Monitor BGs ISS for now Hyperglycemia likely secondary to steroids Syncope Mostly vasovagal. Monitor on telemetry DVT Px: SCDs for now Admission and Anticipated Discharge Date Admission Date: September 15, 2021 Subjective Patient is seen and examined at bedside Had colonoscopy earlier today Currently denies any bleeding issues, diarrhea, abdominal pain, nausea, vomiting Also denies any chest pain, shortness of breath, dizziness Discussed with patient family at bedside Plan for EGD tomorrow Offers no other complaints Review of Systems Review of Systems: All systems reviewed & are unremarkable except as noted in Subjective Physical Exam Physical Exam: Physical Exam: Vitals signs as noted above General Appearance:Thin, Frail, no apparent distress Head: normocephalic, Atraumatic Eyes: normal inspection, EOMI, +Pallor Neck: supple, Trachea midline Respiratory/Chest: Normal breath sounds, CTA, No accessory muscle use Cardiovascular: S1, S2, No murmur Abdomen/GI:Soft, Non tender, Bowel sounds present Extremities/Musculoskeletal:normal inspection, no edema Neurologic/Psych:AAOX3, grossly no focal neurological deficits Skin: normal color, warm Results & Data Results & Data ([facility]) Vital Signs (Past 12 Hours) Vital Signs Temp Pulse Pulse Resp BP Pulse Ox 09/17/21 15:15 36.7 C 81 16 103/67 96 09/17/21 12:15 36.4 C L 66 16 103/64 97 09/17/21 09:31 70 16 104/60 99 09/17/21 09:17 69 18 96/48 L 97 09/17/21 09:05 74 18 97/47 L 97 09/17/21 08:29 36.4 C L 95 H 16 128/75 100 09/17/21 08:19 36.6 C 81 18 109/63 97 09/17/21 08:00 66 Laboratory Results Short CBC 09/16/21 09/17/21 09/17/21 Range/Units 19:46 07:14 13:58 WBC 6.46 (4.8-10.8) K/uL Hgb 8.5 L 7.3 L 7.8 L (14.0-18.0) g/dL Hct 30.3 L 26.3 L 28.5 L (42-52) % Plt Count 636 H (130-400) K/uL BMP 09/17/21 07:14 Sodium 138 Potassium 4.0 Chloride 109 H Carbon Dioxide 25 BUN 8 Creatinine 0.72 Glucose 133 H Calcium 8.7 Liver Function 09/17/21 Range/Units 09:43 Albumin 3.2 L (3.4-5.0) gm/dl
[2021-09-17] MEDS ORDERED: SODIUM CHLORIDE 0.9% 1000ML 1,000 ML IV ONE (22:00)
[2021-09-17 23:34] LABS: Hematocrit (blood only) 27.3 % (42-52); Hemoglobin 7.7 g/dL (14.0-18.0)
[2021-09-18 05:02] LABS: Hepatitis B Core Antibody Total NON-REACTIVE (NON-REACTIVE); Hepatitis B Surface Ab, Quant <5 mIU/mL (> OR = 10)
[2021-09-18 06:48] LABS: Hematocrit (blood only) 28.2 % (42-52); Hemoglobin 7.8 g/dL (14.0-18.0); Mean Corpuscular Hemoglobin 17.3 pg (25-34); Mean Corpuscular Hgb Conc 27.7 g/dL (32-36); Mean Corpuscular Volume 62.4 fL (80-100); Mean Platelet Volume 8.9 fL (7.4-10.4); Nucleated RBC # (auto) 0.03 K/uL (0-0); Nucleated RBC % (auto) 0.4 %; Platelet Count 623 K/uL (130-400); RDW Coefficient of Variation 21.7 % (11.5-14.5); RDW Standard Deviation 47.7 fL (36.4-46.3); Red Blood Count 4.52 M/uL (4.7-6.1); White Blood Count 8.69 K/uL (4.8-10.8)
[2021-09-18 07:01] LABS: Anion Gap 6 (3-11); BUN Creatinine Ratio 10.8 (10-20); Blood Urea Nitrogen 8 mg/dl (6-23); Calcium 8.7 mg/dl (8.5-10.1); Carbon Dioxide 24 mmol/L (21-32); Chloride 108 mmol/L (98-107); Creatinine Clr Calc Pharmacy 118.5 ml/min; Est GFR (African American) > 150.0 ml/min; Est GFR (Non-African American) 132.8 ml/min; Glucose 150 mg/dl (70-99(Fasting)); Potassium 4.1 mmol/L (3.5-5.1); Sodium 138 mmol/L (136-145)
[2021-09-18] MEDS: INSULIN ASPART PER UNIT SC SCH ×4 (08:21→21:12)
--- NOTE | 2021-09-18 08:34 | Anesthesiology Consultation ---
Date of Service September 18, 2021 Assessment & Plan Chart Review Chart Review: Acceptable Risk for Surgery Consults Requested none ASA ASA3 Proposed Anesthesia Anesthesia Type: MAC Risk / Benefits Reviewed With: PT / POA / Parent / Guardian, Accepts Plan and Informed Consent Obtained History Surgery Operation Date: 09/17/21 16:00 Proposed Procedures p Colonoscopy Dr Sweet - Kota Sweet MD Operation Date: 09/18/21 16:00 Proposed Procedures p Small Bowerl Enteroscopy Dr Garrick Mccauley MD no PSH Height/Weight Height: 5 ft 9.5 in Weight: 52.6 kg Allergies Allergy/AdvReac Type Severity Reaction Status Date / Time gluten Allergy Severe Diarrhea Verified 09/17/21 17:08 lactose AdvReac Mild Diarrhea Verified 09/17/21 17:08 Medications Home Medications Medication Instructions Recorded Confirmed Last Taken dicyclomine 10 mg capsule 10 mg PO BID 09/15/21 09/15/21 Unknown dietary supplement 1 tab PO DAILY 09/15/21 09/15/21 Unknown Active Medications Generic Name Dose Route Start Last Admin Trade Name Freq PRN Reason Stop Dose Admin Dicyclomine HCl 10 mg 09/15/21 21:00 09/17/21 20:33 Dicyclomine Hcl 10 Mg Cap PO 10/15/21 20:59 Not Given BID CLAUDIA Methylprednisolone 40 mg/ 0.64 mls @ 1.5 mls/min 09/15/21 21:00 09/17/21 20:32 Syringe IV 10/15/21 20:59 1.5 mls/min Q12H CLAUDIA Administration Ciprofloxacin 400 mg in 200 mls @ 100 mls/hr 09/17/21 10:30 09/18/21 02:28 Cipro / D5w IV 09/27/21 10:29 Infused Q12H CLAUDIA Infusion Protocol Sodium Chloride 1,000 mls @ 80 mls/hr 09/17/21 22:00 09/18/21 01:54 Nss 1000ml IV 09/18/21 10:29 80 mls/hr .[id number] ONE Infusion Insulin Aspart 0 units 09/15/21 23:10 09/18/21 08:21 Insulin Aspart Per Unit SC 10/15/21 23:09 Not Given ACHS CLAUDIA NPO Date Last Intake of Fluids: 09/17/21 Time Last Intake of Fluids: 18:00 Date Last Intake of Solids: 09/14/21 Time Last Intake of Solids: 16:00 Past Medical History Medical History (Updated 09/17/21 @ 07:40 by Rosalind Sullivan DO) Celiac disease Colitis Generalized abdominal pain Hematochezia Severe anemia Exercise / Class Metabolic Activity II 4-5 Yardwork/Stairs/Walk up hill Past Anesthesia History No Hx of Anesthesia Complications and No Family Hx of Anesthesia Complications History of PONV No Hx of PONV and No Hx of Motion Sickness Social History Smoking Status: Never smoker Hx Alcohol Use: Yes Alcohol type: other alcohol intake frequency: a few times a month Hx Substance Use: No Review of Systems ROS Unobtainable: All systems reviewed & are unremarkable except as noted in HPI & below Constitutional: as per Subjective / HPI Physical Exam Vital Signs Last Vital Signs Temp 36.4 C L 09/18/21 08:17 Pulse 75 09/18/21 08:17 Resp 18 09/18/21 08:17 BP 130/79 09/18/21 08:17 Pulse Ox 100 09/18/21 08:17 Constitutional + cachectic; no acute distress ENMT Thyromental Distance: > or= 3.5 Finger Breadths Mallampati Class: III Neck normal visual inspection and trachea midline Respiratory normal respiratory effort; no respiratory distress Auscultation: lungs clear to auscultation bilaterally Cardiovascular Rate/Rhythm: regular rate and regular rhythm Neurologic moves all extremities Psychiatric Orientation: alert and oriented x 3 Testing Laboratory Results 09/18/21 06:23 09/18/21 06:23 Hemoglobin A1c 6.7 % (4.5-5.6) H 09/16/21 05:45 Urine Color Yellow 09/15/21 10:49 Urine Appearance Clear (Clear) 09/15/21 10:49 Urine pH 5.0 (4.5-7.5) 09/15/21 10:49 Ur Specific [place] 1.010 (1.000-1.030) 09/15/21 10:49 Urine Protein Negative (Negative) 09/15/21 10:49 Urine Glucose (UA) Negative (Negative) 09/15/21 10:49 Urine Ketones Negative (Negative) 09/15/21 10:49 Urine Nitrite Negative (Negative) 09/15/21 10:49 Ur Leukocyte Esterase Negative (Negative) 09/15/21 10:49 Blood Type A Positive 09/15/21 13:16 Antibody Screen NEGATIVE 09/15/21 13:16 09/18/21 09/17/21 07:39 20:58 POC Glucose 145 H 141 H
--- NOTE | 2021-09-18 08:36 | History & Physical Report ---
Date of Service September 18, 2021 Assessment & Plan (1) Anemia: Plan: stable for small bowel endoscopy Admission and Anticipated Discharge Date Admission Date: September 15, 2021 History of Present Illness Chief Complaint: anemia and celiac Primary Care Provider: Soham Zuñiga DO pt with anemia and celiac disease for EGD/SB enteroscopy Allergies Allergy/AdvReac Type Severity Reaction Status Date / Time gluten Allergy Severe Diarrhea Verified 09/17/21 17:08 lactose AdvReac Mild Diarrhea Verified 09/17/21 17:08 Home Medications Medication Instructions Recorded Confirmed Type dicyclomine 10 mg capsule 10 mg PO BID 09/15/21 09/15/21 History dietary supplement 1 tab PO DAILY 09/15/21 09/15/21 History Past Med/Surg History Medical History (Updated 09/18/21 @ 08:36 by Duke Mccauley MD) Celiac disease Colitis Generalized abdominal pain Hematochezia Severe anemia Social History Smoking Status: Never smoker Hx Alcohol Use: Yes Alcohol type: other Hx Substance Use: No Communication Ability: Effective [employer] Hitch Driver Required: No Beliefs That Will Affect Care: None marital status: Single Current Living Situation: Parent Other Information That Helps Us Care for You: No Feels Safe at Home: Yes Safety Concerns: Feels Safe At This Time Assistive Devices: None Physical Exam Constitutional: WD/WN, vitals as above Respiratory: normal respiratory effort, lungs clear to auscultation Cardiovascular: RRR, no murmur, no edema Gastrointestinal (Abdomen): normal bowel sounds, soft, nontender, no hepatosplenomegaly Results & Data ([facility]) Vital Signs (Past 12 Hours) Vital Signs Temp Pulse Pulse Resp BP Pulse Ox 09/18/21 08:17 36.4 C L 75 18 130/79 100 09/18/21 08:07 36.5 C 74 16 110/68 99 09/18/21 07:21 63 09/18/21 03:38 36.4 C L 66 18 119/81 97 09/18/21 00:36 36.4 C L 66 18 119/81 97 09/18/21 00:26 65 09/17/21 20:59 36.7 C 80 18 108/67 97 Code Status & VTE Plan VTE Prophylaxis Plan VTE Prophylaxis will be ordered: Yes
[2021-09-18] MEDS ORDERED: LIDOCAINE 2% 2 ML VIAL/AMP(20MG/ML) INFIL ONE (08:39)
[2021-09-18] MEDS ORDERED: PROPOFOL IV EMULSION 10 MG/ML 20 ML VIAL IV ONE (08:39)
--- NOTE | 2021-09-18 09:44 | Anesthesiology Progress Note ---
Date of Service September 18, 2021 Anesthesia Post Procedure Vital Signs Vital Signs: Temp Pulse Pulse Resp BP Pulse Ox Pulse Ox 09/18/21 09:33 73 16 126/77 100 09/18/21 09:19 72 16 116/66 100 09/18/21 09:04 71 16 111/58 L 98 09/18/21 08:17 36.4 C L 75 18 130/79 100 09/18/21 08:07 36.5 C 74 16 110/68 99 09/18/21 07:21 63 09/18/21 03:38 36.4 C L 66 18 119/81 97 09/18/21 00:36 36.4 C L 66 18 119/81 97 09/18/21 00:26 65 09/17/21 20:59 36.7 C 80 18 108/67 97 09/17/21 18:00 96 09/17/21 15:15 36.7 C 81 16 103/67 96 09/17/21 12:15 36.4 C L 66 16 103/64 97 Pain Intensity Abdomen: Pain Intensity: 0 Transfer of Care Handoff Completed per policy Notes Mental Status: alert / awake / arousable and participated in evaluation Patient Amnestic to Procedure: Yes Nausea / Vomiting: adequately controlled Pain: adequately controlled Airway Patency, RR, SpO2: stable & adequate BP & HR: stable & adequate Hydration State: stable & adequate Anesthetic Complications: no major complications apparent and Pt Satisfied with anesthetic care
--- NOTE | 2021-09-18 10:11 | GI REPORT ---
Patient Name: Conner Ashley Procedure Date: 09/18/2021 8:12 AM Date of : 2000 Admit Type: Inpatient Age: 21 Gender: Male Attending MD: Duke Mccauley MD Procedure: Small bowel enteroscopy Providers: Duke Mccauley MD Referring MD: Kota Sweet MD Indications: Iron deficiency anemia, Celiac disease Medicines: See the Anesthesia note for documentation of the administered medications Complications: No immediate complications. Estimated Blood Loss: Estimated blood loss was minimal. Procedure: Pre-Anesthesia Assessment: - Prior to the procedure, a History and Physical was performed, and patient medications, allergies and sensitivities were reviewed. The patient's tolerance of previous anesthesia was reviewed. - The risks and benefits of the procedure and the sedation options and risks were discussed with the patient. All questions were answered and informed consent was obtained. - Patient identification and proposed procedure were verified prior to the procedure by the physician and the nurse. The procedure was verified in the pre-procedure area. - Pre-procedure physical examination revealed no contraindications to sedation. - After reviewing the risks and benefits, the patient was deemed in satisfactory condition to undergo the procedure. After obtaining informed consent, the endoscope was passed under direct vision. Throughout the procedure, the patient's blood pressure, pulse, and oxygen saturations were monitored continuously. The Colonoscope was introduced through the mouth, and advanced to the mid-jejunum. After obtaining informed consent, the endoscope was passed under direct vision. Throughout the procedure, the patient's blood pressure, pulse, and oxygen saturations were monitored continuously.The small bowel enteroscopy was accomplished without difficulty. The patient tolerated the procedure well. Findings: The esophagus was normal. The stomach was normal. There was no evidence of significant pathology in the entire examined duodenum. There was no evidence of significant pathology in the entire examined portion of jejunum. Biopsies were taken with a cold forceps for histology randomly from the small intestine. Verification of patient identification for the specimen was done by the physician and nurse using the patient's name and medical record number. Estimated blood loss was minimal. Impression: - Normal esophagus. - Normal stomach. - Normal examined duodenum. - The examined portion of the jejunum was normal. - Biopsies randomly from the small intestine were obtained. Recommendation: - Await pathology results. - Return patient to [facility] for ongoing care. Duke Mccauley M.D. Duke Mccauley MD 09/18/2021 10:10:58 AM This report has been signed electronically. Note Initiated On: 09/18/2021 8:12 AM Number of Addenda: 0 I attest to the content of the Intraoperative Record and orders documented therein, exceptions below {[id number]}
[2021-09-18] MEDS: PANTOprazole 40 MG TAB PO SCH (10:26)
[2021-09-18] MEDS: DICYCLOMINE HCL 10 MG CAP PO SCH ×2 (10:27→21:12)
[2021-09-18] MEDS: CIPROFLOXACIN / D5W 400 MG/200 ML BAG IV SCH ×2 (10:27→23:17)
[2021-09-18] MEDS: methylPREDNISolone 40 MG in SYRINGE 0 ML IV SCH ×2 (10:27→21:13)
[2021-09-18] MEDS ORDERED: HEPATITIS B ADULT VACCINE INJ 10 MCG/1ML VIAL IM ONE (10:45)
[2021-09-18] MEDS ORDERED: IRON SUCROSE 300 MG in SODIUM CHLORIDE 0.9% 250 ML IV ONE (15:00)
--- NOTE | 2021-09-18 16:16 | Hospitalist Progress Note ---
Date of Service September 18, 2021 Assessment & Plan (1) Colitis: Plan: Patient is a 21 yr male with H/O celiac disease presents with bloody diarrhea going on for the last couple of weeks. CAT scan showing colitis, possible ulcerative colitis. Inflammatory bowel disease colitis Acute blood loss anemia ? Ulcerative colitis/Crohn's disease H/O Celiac Disease Anal Fissure Single small ulcer in the sigmoid colon Stricture of colon --CT ABD:Wall thickening of the entire colon and rectum consistent with a proctocolitis. Wall thickening most pronounced within the ascending colon and hepatic flexure of the colon. Associated distal ileal wall thickening. Ahaustral appearance of the colon. Ulcerative colitis with backwash ileitis is favored. An infectious proctocolitis cord appear similar although is considered less likely. Multiple enlarged colonic/ileocolic lymph nodes are probably reactive however a neoplastic process cannot be completely excluded in the setting of ulcerative colitis. Multifocal luminal narrowing within the right colon is likely due to inflammation although underlying mucosal lesion cannot be excluded. GI consultation for consideration for colonoscopy is recommended. -- Stool studies negative. --S/P Colonoscopy:Anal fissure. Severe colitis in examined portion of colon. Low left sided stricture that could not be traversed. --S/P EGD:Normal esophagus. Normal stomach. Normal examined duodenum. The examined portion of the jejunum was normal. Biopsies randomly from the small intestine were obtained. Continue IV Solu-Medrol Appreciate GI input Continue PPI Pain control Transfuse PRBCs as needed Monitor CBC Hb:7.8 today Might need colorectal surgery Pathology pending Continue Ciprofloxacin Plan to be started on infliximab prior to discharge Hepatitis B, Quantiferon TB, transglutaminase IgA, calprotectin pending Iron deficiency anemia Received IV Venofer Severe protein calorie malnutrition H/O Celiac disease Admits to being noncompliant with celiac diet BMI 16.8 Dietitian consulted 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 HbA1c is 6.5 in 10/2020 Not on medications HbA1c unreliable secondary to anemia Monitor BGs ISS for now Hyperglycemia likely secondary to steroids Syncope Mostly vasovagal. Monitor on telemetry DVT Px: SCDs for now Admission and Anticipated Discharge Date Admission Date: September 15, 2021 Subjective Patient is seen and examined at bedside Had EGD earlier today Reports having 3 loose BMs, no bleeding issues Family at bedside No new complaints Denies any chest pain, shortness of breath, nausea, abdominal pain Review of Systems Review of Systems: All systems reviewed & are unremarkable except as noted in Subjective Physical Exam Physical Exam: Physical Exam: Vitals signs as noted above General Appearance:Thin, Frail, no apparent distress Head: normocephalic, Atraumatic Eyes: normal inspection, EOMI, +Pallor Neck: supple, Trachea midline Respiratory/Chest: Normal breath sounds, CTA, No accessory muscle use Cardiovascular: S1, S2, No murmur Abdomen/GI:Soft, Non tender, Bowel sounds present Extremities/Musculoskeletal:normal inspection, no edema Neurologic/Psych:AAOX3, grossly no focal neurological deficits Skin: normal color, warm Results & Data Results & Data ([facility]) Vital Signs (Past 12 Hours) Vital Signs Temp Pulse Pulse Resp BP Pulse Ox 09/18/21 15:29 36.8 C 75 19 114/64 94 09/18/21 12:04 36.8 C 62 20 108/65 99 09/18/21 09:33 73 16 126/77 100 09/18/21 09:19 72 16 116/66 100 09/18/21 09:04 71 16 111/58 L 98 09/18/21 08:17 36.4 C L 75 18 130/79 100 09/18/21 08:07 36.5 C 74 16 110/68 99 09/18/21 07:21 63 Laboratory Results Short CBC 09/17/21 09/18/21 Range/Units 22:29 06:23 WBC 8.69 (4.8-10.8) K/uL Hgb 7.7 L 7.8 L (14.0-18.0) g/dL Hct 27.3 L 28.2 L (42-52) % Plt Count 623 H (130-400) K/uL BMP 09/18/21 06:23 Sodium 138 Potassium 4.1 Chloride 108 H Carbon Dioxide 24 BUN 8 Creatinine 0.74 Glucose 150 H Calcium 8.7
[2021-09-19 00:35] LABS: HBSAG NON-REACTIVE (NON-REACTIVE); Transglutaminase, Tissue IgA 86.6 U/mL
[2021-09-19 08:08] LABS: Hematocrit (blood only) 29.6 % (42-52); Hemoglobin 8.1 g/dL (14.0-18.0); Mean Corpuscular Hgb Conc 27.4 g/dL (32-36); Mean Corpuscular Volume 62.2 fL (80-100); Platelet Count 662 K/uL (130-400); RDW Coefficient of Variation 22.4 % (11.5-14.5); RDW Standard Deviation 48.4 fL (36.4-46.3); Red Blood Count 4.76 M/uL (4.7-6.1); White Blood Count 9.03 K/uL (4.8-10.8)
[2021-09-19 08:31] LABS: Anion Gap 4 (3-11); BUN Creatinine Ratio 12.2 (10-20); Blood Urea Nitrogen 9 mg/dl (6-23); Carbon Dioxide 27 mmol/L (21-32); Chloride 107 mmol/L (98-107); Creatinine Clr Calc Pharmacy 121.6 ml/min; Est GFR (African American) > 150.0 ml/min; Est GFR (Non-African American) 132.8 ml/min; Glucose 142 mg/dl (70-99(Fasting)); Potassium 4.1 mmol/L (3.5-5.1); Sodium 138 mmol/L (136-145)
[2021-09-19] MEDS: INSULIN ASPART PER UNIT SC SCH ×4 (08:39→23:55)
--- NOTE | 2021-09-19 10:05 | Gastroenterology Progress Note ---
Date of Service September 19, 2021 Assessment & Plan (1) Celiac disease: (2) Severe anemia: (3) Colitis: Plan: Patient is a 21 years old male currently being followed for celiac disease, suspected IBD likely Crohn's disease. Still having loose stools but denies any more rectal bleeding also no abd apin/cramping, n/v. Blood ct stable. - F/U endoscopies path - Replete Fe and micronutrient deficiencies, consider MVI and repeat Fe infusion, Zinc replacement - Gluten free diet; currently CL, will slowly advance given risk for bowel obstruction - Continue IV steroids - TB quant gold pending - Hep B serologies negative. Not immune, received 1st Hep B booster on 09/18 (due in 1 month, 6 months later). - Anticipating Infliximab 10mg/kg induction once TB test resulted Admission and Anticipated Discharge Date Admission Date: September 15, 2021 Supervising Physician Co-Signing Physician Notes I have personally seen and examined the patient with JEB Victoria. Her note reflects my exam and findings. I agree with her impression and plan. Doing well. Low residue diet. Duke Mccauley M.D. Subjective Patient reports he had 1 bowel movement that was loose this morning, denies any abdominal pain, nausea or vomiting, cramping, or rectal bleeding. Does have slight burning in the rectum area. Review of Systems Review of Systems: All systems reviewed & are unremarkable except as noted in HPI & below Physical Exam Constitutional: + thin, well groomed, cooperative and comfortable Eyes: PERRL, conjunctivae normal, anicteric sclerae ENMT: external ear and nose normal, oropharynx normal Respiratory: normal respiratory effort, lungs clear to auscultation Cardiovascular: RRR, no murmur, no edema Gastrointestinal (Abdomen): normal bowel sounds, soft, nontender, no hepatosplenomegaly Skin: no rashes, warm and dry no jaundice Psychiatric: A+Ox3, euthymic affect Lymphatic: no lymphedema Results & Data ([facility]) Vital Signs (Past 12 Hours) Vital Signs Temp Pulse Pulse Resp BP Pulse Ox 09/19/21 08:33 36.4 C L 56 L 18 111/72 98 09/19/21 07:13 54 L 09/19/21 05:26 36.4 C L 66 16 100/56 L 98 09/18/21 23:47 36.8 C 70 16 128/78 98 09/18/21 22:20 79
[2021-09-19] MEDS: DICYCLOMINE HCL 10 MG CAP PO SCH ×2 (10:18→22:31)
[2021-09-19] MEDS: PANTOprazole 40 MG TAB PO SCH (10:18)
[2021-09-19] MEDS: methylPREDNISolone 40 MG in SYRINGE 0 ML IV SCH ×2 (10:18→22:31)
[2021-09-19] MEDS: CIPROFLOXACIN / D5W 400 MG/200 ML BAG IV SCH ×2 (10:20→22:31)
[2021-09-19 12:26] LABS: Quantiferon Mitogen-NIL >10.00 IU/mL; Quantiferon NIL 0.03 IU/mL; Quantiferon TB Gold Plus NEGATIVE (NEGATIVE); Quantiferon TB1-NIL <0.00 IU/mL; Quantiferon TB2-NIL <0.00 IU/mL
[2021-09-19] MEDS: ZINC SULFATE 220 MG CAPSULE PO SCH (12:27)
--- NOTE | 2021-09-19 18:22 | Hospitalist Progress Note ---
Date of Service September 19, 2021 Delayed entry Date of service as per above Assessment & Plan (1) Colitis: Plan: Per Dr. sOman's notes with addendum: Patient is a 21 yr male with H/O celiac disease presents with bloody diarrhea going on for the last couple of weeks. CAT scan showing colitis, possible ulcerative colitis. Inflammatory bowel disease colitis Acute blood loss anemia ? Ulcerative colitis/Crohn's disease H/O Celiac Disease Anal Fissure Single small ulcer in the sigmoid colon Stricture of colon --CT ABD:Wall thickening of the entire colon and rectum consistent with a proctocolitis. Wall thickening most pronounced within the ascending colon and hepatic flexure of the colon. Associated distal ileal wall thickening. Ahaustral appearance of the colon. Ulcerative colitis with backwash ileitis is favored. An infectious proctocolitis cord appear similar although is considered less likely. Multiple enlarged colonic/ileocolic lymph nodes are probably reactive however a neoplastic process cannot be completely excluded in the setting of ulcerative colitis. Multifocal luminal narrowing within the right colon is likely due to inflammation although underlying mucosal lesion cannot be excluded. GI consultation for consideration for colonoscopy is recommended. -- Stool studies negative. --S/P Colonoscopy:Anal fissure. Severe colitis in examined portion of colon. Low left sided stricture that could not be traversed. --S/P EGD:Normal esophagus. Normal stomach. Normal examined duodenum. The examined portion of the jejunum was normal. Biopsies randomly from the small intestine were obtained. Continue IV Solu-Medrol Appreciate GI input Continue PPI Pain control Transfuse PRBCs as needed Monitor CBC Hb:7.8 today Might need colorectal surgery Pathology pending Continue Ciprofloxacin Plan to be started on infliximab prior to discharge Hepatitis B, Quantiferon TB, transglutaminase IgA, calprotectin pending 09/19: Clinically improving Diarrhea almost resolved Tolerating diet Continue IV steroids per GI service Infliximab before discharge next Iron deficiency anemia Received IV Venofer Severe protein calorie malnutrition H/O Celiac disease Admits to being noncompliant with celiac diet BMI 16.8 Dietitian consulted Continue soft diet 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 HbA1c is 6.5 in 10/2020 Not on medications HbA1c unreliable secondary to anemia Monitor BGs ISS for now Hyperglycemia likely secondary to steroids Monitor closely Syncope Mostly vasovagal. Monitor on telemetry DVT Px: SCDs for now plan of care discussed with patient in detail and at length all questions answered He is understanding, agreeable, comfortable with the plan of care Admission and Anticipated Discharge Date Admission Date: September 15, 2021 Subjective Follow-up for inflammatory bowel disease flareup, etc. Seen resting bedside chair, comfortable, in good spirits States he feels improving overall 1 loose bowel movement, otherwise no abdominal pain, nausea vomiting, fevers or chills Tolerating diet so far no chest pain, dyspnea, palpitations, dizziness No other symptoms Review of Systems Review of Systems: all noted and negative except for above Physical Exam Physical Exam: General- oriented x 3, not in distress, speaks in sentences with no effort or accessory muscle use Underweight Head- atraumatic Eyes- PERRL, EOMI, anicteric ENT- oropharynx clear Neck- supple, no JVD, no adenopathy, no thyromegaly; carotids +2/2, no bruits appreciated Lungs- clear to auscultation bilaterally, no rales/wheezes Heart- normal rate, regular rhythm; no murmur, no gallop, no rub appreciated Abdomen- normal bowel sounds, nondistended, soft, nontender, no masses or hepatosplenomegaly Extremities- no pretibial edema, no calf tenderness; peripheral pulses intact Neuro- alert, oriented x 3; CN 2-12 grossly intact; motor 5/5 bilaterally;sensation 100% on all extremities; no other gross focal neurologic deficits Skin- warm & dry Results & Data Results & Data ([facility]) Vital Signs (Past 12 Hours) Vital Signs Temp Pulse Pulse Resp BP BP Pulse Ox 09/19/21 15:02 80 09/19/21 12:03 36.6 C 75 14 111/67 98 09/19/21 08:33 36.4 C L 56 L 18 111/72 98 09/19/21 07:13 54 L all noted and reviewed including below
[2021-09-20] MEDS: methylPREDNISolone 40 MG in SYRINGE 0 ML IV SCH ×2 (08:38→20:44)
[2021-09-20] MEDS: INSULIN ASPART PER UNIT SC SCH ×4 (08:39→20:40)
[2021-09-20] MEDS: DICYCLOMINE HCL 10 MG CAP PO SCH (08:39)
[2021-09-20] MEDS: ZINC SULFATE 220 MG CAPSULE PO SCH (09:18)
[2021-09-20] MEDS: PANTOprazole 40 MG TAB PO SCH (09:18)
[2021-09-20] MEDS ORDERED: 1.2 MICRON FILTER 1 EA IV ONE (09:55)
--- NOTE | 2021-09-20 10:08 | Gastroenterology Progress Note ---
Date of Service September 20, 2021 Assessment & Plan (1) Celiac disease: (2) Severe anemia: (3) Colitis: Plan: Patient is a 21 years old male currently being followed for celiac disease, suspected IBD likely Crohn's disease. Now having soft, formed stools, no abd pain/cramping ,n/v, rectal bleeding. Blood ct stable. - F/U endoscopies path - Replete Fe and micronutrient deficiencies, consider MVI and repeat Fe infusion, Zinc replacement - Soft, low residue gluten free and low lactose diet. - Continue IV steroids; upon DC need slow steroid taper with Prednisone 40mg daily x 1 week, 30mg daily x 1week, 20mg daily x 1 week, 15mg daily x 1 week, 10mg daily x 1 week, 5mg daily x 1 week. - TB quant gold negative. - Hep B serologies negative. Not immune, received 1st Hep B booster on 09/18 (due in 1 month, 6 months later) - Anticipating 1st Infliximab 10mg/kg induction (500mg) today. Pre med of Tylenol 650mg PO + Benadryl 25mg PO ordered - We are arranging 2nd Infliximab induction dose to be given in outpt setting within 7-10 days Admission and Anticipated Discharge Date Admission Date: September 15, 2021 Supervising Physician Co-Signing Physician Notes I have personally seen and examined the patient with JEB Victoria. Her note reflects my exam and findings. I agree with her impression and plan. Ca ent receiving first infusion of Remicade. Doing well. Duke Mccauley M.D. Subjective Pt reports having a bit more formed stool yesterday and this AM. Is passing flatus. Denies n/v, abd pain/cramping, rectal bleeding. Review of Systems Review of Systems: All systems reviewed & are unremarkable except as noted in HPI & below Physical Exam Constitutional: + thin, well groomed, cooperative and comfortable Eyes: PERRL, conjunctivae normal, anicteric sclerae ENMT: external ear and nose normal, oropharynx normal Respiratory: normal respiratory effort, lungs clear to auscultation Cardiovascular: RRR, no murmur, no edema Gastrointestinal (Abdomen): normal bowel sounds, soft, nontender, no hepatosplenomegaly Skin: no rashes, warm and dry no jaundice Psychiatric: A+Ox3, euthymic affect Lymphatic: no lymphedema Results & Data ([facility]) Vital Signs (Past 12 Hours) Vital Signs Temp Pulse Pulse Resp BP Pulse Ox 09/20/21 08:24 37.1 C 86 18 116/72 96 09/20/21 03:49 36.4 C L 66 104/63 98 09/20/21 00:32 72 09/19/21 23:54 36.9 C 66 17 109/65 98
[2021-09-20] MEDS ORDERED: diphenhydrAMINE Capsule 25 MG CAP PO ONE (10:30)
[2021-09-20] MEDS ORDERED: ACETAMINOPHEN 325 MG TAB PO ONE (10:30)
[2021-09-20] MEDS: CIPROFLOXACIN / D5W 400 MG/200 ML BAG IV SCH (11:58)
--- NOTE | 2021-09-20 16:36 | Hospitalist Progress Note ---
Date of Service September 20, 2021 Assessment & Plan (1) Colitis: Plan: Per Dr. Osman's notes with addendum: Patient is a 21 yr male with H/O celiac disease presents with bloody diarrhea going on for the last couple of weeks. CAT scan showing colitis, possible ulcerative colitis. Inflammatory bowel disease colitis Acute blood loss anemia ? Ulcerative colitis/Crohn's disease H/O Celiac Disease Anal Fissure Single small ulcer in the sigmoid colon Stricture of colon --CT ABD:Wall thickening of the entire colon and rectum consistent with a proctocolitis. Wall thickening most pronounced within the ascending colon and hepatic flexure of the colon. Associated distal ileal wall thickening. Ahaustral appearance of the colon. Ulcerative colitis with backwash ileitis is favored. An infectious proctocolitis cord appear similar although is considered less likely. Multiple enlarged colonic/ileocolic lymph nodes are probably reactive however a neoplastic process cannot be completely excluded in the setting of ulcerative colitis. Multifocal luminal narrowing within the right colon is likely due to inflammation although underlying mucosal lesion cannot be excluded. GI consultation for consideration for colonoscopy is recommended. -- Stool studies negative. --S/P Colonoscopy:Anal fissure. Severe colitis in examined portion of colon. Low left sided stricture that could not be traversed. --S/P EGD:Normal esophagus. Normal stomach. Normal examined duodenum. The examined portion of the jejunum was normal. Biopsies randomly from the small intestine were obtained. Continue IV Solu-Medrol Appreciate GI input Continue PPI Pain control Transfuse PRBCs as needed Monitor CBC Hb:7.8 today Might need colorectal surgery Pathology pending Continue Ciprofloxacin Plan to be started on infliximab prior to discharge Hepatitis B, Quantiferon TB, transglutaminase IgA, calprotectin pending 09/20: Continues to improve Diarrhea resolved Tolerating diet well On IV steroids today, anticipate p.o. prednisone taper starting tomorrow Infliximab dose to be given today Iron deficiency anemia Received IV Venofer Severe protein calorie malnutrition H/O Celiac disease Admits to being noncompliant with celiac diet BMI 16.8 Dietitian consulted Continue soft diet 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 HbA1c is 6.5 in 10/2020 Not on medications HbA1c unreliable secondary to anemia Monitor BGs ISS for now Hyperglycemia likely secondary to steroids Monitor closely Syncope Mostly vasovagal. Monitor on telemetry DVT Px: SCDs for now plan of care discussed with patient and his parents all questions answered They are understanding, agreeable, comfortable with the plan of care Admission and Anticipated Discharge Date Admission Date: September 15, 2021 Subjective Follow-up for Crohn's disease, etc. Seen sitting up in bed, not in distress, comfortable Patient's parents at the bedside States he continues to feel improved Bowel movement this morning was performed Abdominal pain, nausea vomiting, fever or chills No other new symptom Review of Systems Review of Systems: all noted and negative except for above Physical Exam Physical Exam: General- oriented x 3, not in distress, speaks in sentences with no effort or accessory muscle use Underweight next Eyes- anicteric Neck- no JVD Lungs- clear breath sounds, no crackles or wheezing bilaterally Heart- normal rate, regular rhythm; no murmurs Abdomen- normal bowel sounds, nondistended, soft, no tenderness Extremities- no pretibial edema, no calf tenderness Neuro- alert, oriented x 3; no gross focal neurologic deficits Skin- warm & dry Results & Data Results & Data ([facility]) Vital Signs (Past 12 Hours) Vital Signs Temp Pulse Resp BP Pulse Ox 09/20/21 08:24 37.1 C 86 18 116/72 96 all noted and reviewed including below
[2021-09-20] MEDS: CIPROFLOXACIN 500 MG TAB PO SCH (21:27)
[2021-09-21] MEDS: CIPROFLOXACIN 500 MG TAB PO SCH ×2 (08:11→21:21)
[2021-09-21] MEDS: ZINC SULFATE 220 MG CAPSULE PO SCH (08:11)
[2021-09-21] MEDS: PANTOprazole 40 MG TAB PO SCH (08:11)
[2021-09-21] MEDS: INSULIN ASPART PER UNIT SC SCH ×4 (08:13→21:21)
[2021-09-21] MEDS: methylPREDNISolone 40 MG in SYRINGE 0 ML IV SCH ×2 (08:13→21:21)
--- NOTE | 2021-09-21 09:20 | Gastroenterology Progress Note ---
Date of Service September 21, 2021 Assessment & Plan (1) Celiac disease: (2) Severe anemia: (3) Colitis: Plan: Patient is a 21 years old male currently being followed for celiac disease, suspected IBD likely Crohn's disease. Now having soft, formed stools, no abd pain/cramping ,n/v, rectal bleeding. Blood ct stable. - Replete Fe and micronutrient deficiencies, consider MVI and repeat Fe infusion, Zinc replacement - Soft, low residue gluten free and low lactose diet. - Continue IV steroids; upon DC need slow steroid taper with Prednisone 40mg daily x 1 week, 30mg daily x 1week, 20mg daily x 1 week, 15mg daily x 1 week, 10mg daily x 1 week, 5mg daily x 1 week. - TB quant gold negative. - Hep B serologies negative. Not immune, received 1st Hep B booster on 09/18 (due in 1 month, 6 months later) - 1st Infliximab 10mg/kg induction (500mg) 09/20/2021. Pre med of Tylenol 650mg PO + Benadryl 25mg PO ordered - We are arranging 2nd Infliximab induction dose to be given in outpt setting within 7-10 days - Anticipate possible DC home tomorrow Admission and Anticipated Discharge Date Admission Date: September 15, 2021 Supervising Physician Co-Signing Physician Notes I saw and evaluated the patient. He has a history of fibrostenotic Crohn's disease and was recently started on a biologic. Please note that it may take several weeks for the patient to notice improvement with initiation of a biologic. We would recommend transition to an oral steroid as noted above and follow-up with his outpatient GI provider in the next few weeks. Please call with any additional questions or concerns, GI to sign off Subjective Pt reports he's feeling well, denies any abd pain, n/v. Is passing flatus. Stools are soft, formed, no rectal bleeding. Review of Systems Review of Systems: All systems reviewed & are unremarkable except as noted in HPI & below Physical Exam Constitutional: + thin, well groomed, cooperative and comfortable Eyes: PERRL, conjunctivae normal, anicteric sclerae ENMT: external ear and nose normal, oropharynx normal Respiratory: normal respiratory effort, lungs clear to auscultation Cardiovascular: RRR, no murmur, no edema Gastrointestinal (Abdomen): normal bowel sounds, soft, nontender, no hepatosplenomegaly Skin: no rashes, warm and dry no jaundice Psychiatric: A+Ox3, euthymic affect Lymphatic: no lymphedema Results & Data ([place]) Vital Signs (Past 12 Hours) Vital Signs Temp Pulse Pulse Resp BP Pulse Ox 09/21/21 07:47 36.6 C 68 17 119/73 98 09/21/21 03:00 36.8 C 56 L 20 111/78 98 09/20/21 23:00 36.7 C 60 71 16 111/64 98
[2021-09-21] MEDS ORDERED: HYOSCYAMINE SULFATE 0.125 MG TAB SL PRN (10:58)
--- NOTE | 2021-09-21 16:06 | Hospitalist Progress Note ---
Date of Service September 21, 2021 Assessment & Plan (1) Colitis: Plan: Per Dr. Osman's notes with addendum: Patient is a 21 yr male with H/O celiac disease presents with bloody diarrhea going on for the last couple of weeks. CAT scan showing colitis, possible ulcerative colitis. Inflammatory bowel disease colitis Acute blood loss anemia ? Ulcerative colitis/Crohn's disease H/O Celiac Disease Anal Fissure Single small ulcer in the sigmoid colon Stricture of colon --CT ABD:Wall thickening of the entire colon and rectum consistent with a proctocolitis. Wall thickening most pronounced within the ascending colon and hepatic flexure of the colon. Associated distal ileal wall thickening. Ahaustral appearance of the colon. Ulcerative colitis with backwash ileitis is favored. An infectious proctocolitis cord appear similar although is considered less likely. Multiple enlarged colonic/ileocolic lymph nodes are probably reactive however a neoplastic process cannot be completely excluded in the setting of ulcerative colitis. Multifocal luminal narrowing within the right colon is likely due to inflammation although underlying mucosal lesion cannot be excluded. GI consultation for consideration for colonoscopy is recommended. -- Stool studies negative. --S/P Colonoscopy:Anal fissure. Severe colitis in examined portion of colon. Low left sided stricture that could not be traversed. --S/P EGD:Normal esophagus. Normal stomach. Normal examined duodenum. The examined portion of the jejunum was normal. Biopsies randomly from the small intestine were obtained. Continue IV Solu-Medrol Appreciate GI input Continue PPI Pain control Transfuse PRBCs as needed Monitor CBC Hb:7.8 today Might need colorectal surgery Pathology pending Continue Ciprofloxacin Plan to be started on infliximab prior to discharge Hepatitis B, Quantiferon TB, transglutaminase IgA, calprotectin pending 09/21: Received first dose of infliximab yesterday 09/20 Has mild abdominal cramping today Diarrhea resolved Tolerating diet well Discussed with GI Continue IV steroids today Continue to monitor If improving, transition to prednisone tomorrow, and discharge Lactose-free diet As needed Levsin ordered Iron deficiency anemia Received IV Venofer Severe protein calorie malnutrition H/O Celiac disease Admits to being noncompliant with celiac diet BMI 16.8 Dietitian consulted Continue soft diet 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 HbA1c is 6.5 in 10/2020 Not on medications HbA1c unreliable secondary to anemia Monitor BGs ISS for now Hyperglycemia likely secondary to steroids Monitor closely Syncope Mostly vasovagal. Monitor on telemetry DVT Px: SCDs for now plan of care discussed with patient and his parents all questions answered They are understanding, agreeable, comfortable with the plan of care Admission and Anticipated Discharge Date Admission Date: September 15, 2021 Subjective Follow-up for gross disease, etc. Seen sitting up in bedside chair, reporting mild to moderate abdominal cramping after taking his pills this morning. No nausea or vomiting, fevers or chills No other symptoms Review of Systems Review of Systems: all noted and negative except for above Physical Exam Physical Exam: General- oriented x 3, not in distress, speaks in sentences with no effort or accessory muscle use Eyes- anicteric Neck- no JVD Lungs- clear BS bilaterally, no crackles Heart- normal rate, regular rhythm; no murmurs Abdomen- normal bowel sounds, nondistended, soft, mild epigastric tenderness Extremities- no pretibial edema, no calf tenderness Neuro- alert, oriented x 3; no gross focal neurologic deficits Skin- warm & dry Results & Data Results & Data ([facility]) Vital Signs (Past 12 Hours) Vital Signs Temp Pulse Resp BP BP Pulse Ox 09/21/21 15:51 36.6 C 71 16 99/61 L 97 09/21/21 12:24 36.7 C 105 H 16 112/73 95 09/21/21 07:47 36.6 C 68 17 119/73 98 all noted and reviewed including below
[2021-09-22] MEDS: INSULIN ASPART PER UNIT SC SCH (08:21)
[2021-09-22] MEDS: methylPREDNISolone 40 MG in SYRINGE 0 ML IV SCH (09:01)
[2021-09-22] MEDS: CIPROFLOXACIN 500 MG TAB PO SCH (09:01)
[2021-09-22] MEDS: PANTOprazole 40 MG TAB PO SCH (09:02)
[2021-09-22] MEDS: ZINC SULFATE 220 MG CAPSULE PO SCH (09:02)
--- NOTE | 2021-09-22 16:36 | Hospitalist Progress Note ---
Date of Service September 22, 2021 Assessment & Plan (1) Colitis: Plan: Per Dr. Osman's notes with addendum: Patient is a 21 yr male with H/O celiac disease presents with bloody diarrhea going on for the last couple of weeks. CAT scan showing colitis, possible ulcerative colitis. Inflammatory bowel disease colitis Acute blood loss anemia ? Ulcerative colitis/Crohn's disease H/O Celiac Disease Anal Fissure Single small ulcer in the sigmoid colon Stricture of colon --CT ABD:Wall thickening of the entire colon and rectum consistent with a proctocolitis. Wall thickening most pronounced within the ascending colon and hepatic flexure of the colon. Associated distal ileal wall thickening. Ahaustral appearance of the colon. Ulcerative colitis with backwash ileitis is favored. An infectious proctocolitis cord appear similar although is considered less likely. Multiple enlarged colonic/ileocolic lymph nodes are probably reactive however a neoplastic process cannot be completely excluded in the setting of ulcerative colitis. Multifocal luminal narrowing within the right colon is likely due to inflammation although underlying mucosal lesion cannot be excluded. GI consultation for consideration for colonoscopy is recommended. -- Stool studies negative. --S/P Colonoscopy:Anal fissure. Severe colitis in examined portion of colon. Low left sided stricture that could not be traversed. --S/P EGD:Normal esophagus. Normal stomach. Normal examined duodenum. The examined portion of the jejunum was normal. Biopsies randomly from the small intestine were obtained. GI consulted given IV Solu-Medrol 40mg IV BID Protonix Ciprofloxacin Hepatitis B, Quantiferon TB: negative 09/22 Received first dose of infliximab 09/20 abdominal pain resolved Diarrhea resolved Tolerating diet well Discussed with GI continue Slow Prednisone taper at home Prednisone 40mg daily x 1 week, then 30mg daily x 1 week, etc. Cipro X 2 days Protonix Infliximab in 7-10 days c/o GI Lactose-free diet As needed Levsin ordered Iron deficiency anemia Received IV Venofer repeat CBC and Iron level on ff up with PCP in 1 week Severe protein calorie malnutrition H/O Celiac disease Admits to being noncompliant with celiac diet BMI 16.8 Dietitian consulted Continue soft diet 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 HbA1c is 6.5 in 10/2020 Not on medications HbA1c unreliable secondary to anemia BSG 145-170 while on IV steroids Monitor closely while on Prednisone Syncope Mostly vasovagal. DVT Px: SCDs for now plan of care discussed with patient and his parents all questions answered They are understanding, agreeable, comfortable with the plan of care Admission and Anticipated Discharge Date Admission Date: September 15, 2021 Subjective ff up for likely Crohn's disease, etc seen resting in bed, sitting up in good spirits states he feels better no abdominal pain, nausea, chills no other symptoms states he is ready and would like to be discharged Review of Systems Review of Systems: all noted and negative except for above Physical Exam Physical Exam: General- oriented x 3, not in distress, speaks in sentences with no effort or accessory muscle use Eyes- anicteric Neck- no JVD Lungs- clear breath sounds BL Heart- normal rate, regular rhythm; no murmurs Abdomen- normal bowel sounds, nondistended, soft, nontender Extremities- no pretibial edema, no calf tenderness Neuro- alert, oriented x 3; no gross focal neurologic deficits Skin- warm & dry Results & Data Results & Data ([facility]) Vital Signs (Past 12 Hours) Vital Signs Temp Pulse Pulse Pulse Resp BP BP 09/22/21 09:56 36.5 C 64 78 18 95/62 L 90/51 L 09/22/21 09:23 70 09/22/21 07:19 36.5 C 64 18 90/51 L 09/22/21 05:06 36.7 C 137 H 18 95/62 L Pulse Ox 09/22/21 09:56 98 09/22/21 09:23 09/22/21 07:19 98 09/22/21 05:06 96 all noted and reviewed including below
--- NOTE | 2021-09-22 16:38 | Discharge Summary ---
Date of Service September 22, 2021 Admission HPI Per Admitting Provider CHIEF COMPLAINT: Bloody diarrhea, syncope. HISTORY OF PRESENT ILLNESS: This is a 21-year-old male with past medical history significant for GERD, Asperger's disorder, history of maturity onset diabetes, currently not on any medication, history of celiac disease diagnosed many years ago. He was noncompliant with diet, but since last 4-5 months he is started to be on a celiac diet, but his symptoms of abdominal pain, cramps and diarrhea did not got better, it got worse and in the last 1 or 2 weeks he is having bloody diarrhea. Last night there was lot of amount of blood in the stool, after that he felt blank and he think he might have passed out and somehow crawled to the bed and slept for 1 hour that is the reason he came to the hospital. Here his hemoglobin was 7.2. CAT scan showing possible ulcerative colitis. ER talked with GI on-call and recommended Solu-Medrol. Currently, resting comfortably, hemodynamically stable. He looks pale. Denies any headache. No dizziness, no blurred visions, no earache, no runny nose, no sore throat, no cough, no fevers, no chest pain, no shortness of breath. No nausea, no vomiting. Normal bladder movements. No swelling in the legs. Ambulates okay. The patient initially declined to sign the blood consent but later he was ok and signed the consent. Admission Exam Per Admitting Provider GENERAL: The patient is thin and frail, not in acute distress. VITAL SIGNS: Temperature 36.8, pulse 86, respiratory rate 20, blood pressure 116/92, oxygen 98% on room air. HEENT: Pupils equal, round and reactive to light. Oral mucosa moist. LUNGS: No JVD, no neck masses. CARDIOVASCULAR: S1 and S2 heard. Regular rate and rhythm. No murmur, no gallop. RESPIRATORY SYSTEM: Normal AP diameter. No accessory muscle use. No wheezing, no crackles. ABDOMEN: Soft. Bowel sounds are present, nontender, no distention. CENTRAL NERVOUS SYSTEM: Cranial nerves II-XII grossly intact, nonfocal. EXTREMITIES: No edema, no erythema. Principal Diagnosis Inflammatory bowel disease, likely Crohn's disease Discharge Exam General- oriented x 3, not in distress, speaks in sentences with no effort or accessory muscle use Eyes- anicteric Neck- no JVD Lungs- clear BS bilaterally, no crackles Heart- normal rate, regular rhythm; no murmurs Abdomen- normal bowel sounds, nondistended, soft, mild epigastric tenderness Extremities- no pretibial edema, no calf tenderness Neuro- alert, oriented x 3; no gross focal neurologic deficits Skin- warm & dry Discharge Data Allergies Allergy/AdvReac Type Severity Reaction Status Date / Time gluten Allergy Severe Diarrhea Verified 09/17/21 17:08 lactose AdvReac Mild Diarrhea Verified 09/17/21 17:08 Consultations 09/15/21 13:34 ED Decision to Admit Stat 09/16/21 08:00 Consult Gastroenterology Routine 09/19/21 10:07 Consult Nutrition Routine Procedures Performed Operation Date: 09/17/21 16:00 Actual Procedures p Colonoscopy Biopsy Cytology - Kota Sweet MD Operation Date: 09/18/21 16:00 Actual Procedures p Small Bowel Enteroscopy BX/CYT - Duke Mccauley MD Ordered Studies 09/15/21 08:43 CT abd pelvis oral and IV con Stat COMPARISON STUDY: KUB May 24, 2011. TECHNIQUE: Following IV administration of 94 mL of Optiray, axial images of the abdomen and pelvis were obtained from the lung bases to the proximal femurs. Images were reviewed in the axial, sagittal, and coronal planes. IV contrast was administered without complication. Automated exposure control was utilized for the study. A dose lowering technique was utilized adhering to the principles of ALARA. Oral contrast was administered. CT DOSE: 280.60 mGy.cm FINDINGS: Lung bases are unremarkable. Periportal edema within the liver is noted. No biliary or pancreatic ductal dilatation is present. There are no hepatic lesions. The spleen, adrenal glands, kidneys and pancreas are normal. No hydronephrosis. Major vasculature is patent. The appendix is unremarkable. There is no evidence for a bowel obstruction. Note is made of wall thickening of the entire colon and the rectum. Ahaustral appearance of the colon is noted. The wall thickening is most pronounced within the ascending colon and hepatic flexure of the colon. This results in minimal narrowing. No evidence for a bowel obstruction. There are numerous enlarged pericolonic and ileocolic lymph nodes. Index ileocolic node measures 1.9 x 1.1 cm. There is no free air. There is no abscess. No evidence for small bowel obstruction. There is also wall thickening of the terminal ileum. This could reflect backwash ileitis. IMPRESSION: Wall thickening of the entire colon and rectum consistent with a proctocolitis. Wall thickening most pronounced within the ascending colon and hepatic flexure of the colon. Associated distal ileal wall thickening. Ahaustral appearance of the colon. Ulcerative colitis with backwash ileitis is favored. An infectious proctocolitis cord appear similar although is considered less likely. Multiple enlarged colonic/ileocolic lymph nodes are probably reactive however a neoplastic process cannot be completely excluded in the setting of ulcerative colitis. Multifocal luminal narrowing within the right colon is likely due to inflammation although underlying mucosal lesion cannot be excluded. GI consultation for consideration for colonoscopy is recommended. ACT 112: Negative or not required by law. Electronically signed by: Maycol Prieto M.D. 09/15/2021 1:12 PM Hospital Course (1) Colitis: Per Dr. Osman's notes with addendum: Patient is a 21 yr male with H/O celiac disease presents with bloody diarrhea going on for the last couple of weeks. CAT scan showing colitis, possible ulcerative colitis. Inflammatory bowel disease colitis Acute blood loss anemia ? Ulcerative colitis/Crohn's disease H/O Celiac Disease Anal Fissure Single small ulcer in the sigmoid colon Stricture of colon --CT ABD:Wall thickening of the entire colon and rectum consistent with a proctocolitis. Wall thickening most pronounced within the ascending colon and hepatic flexure of the colon. Associated distal ileal wall thickening. Ahaustral appearance of the colon. Ulcerative colitis with backwash ileitis is favored. An infectious proctocolitis cord appear similar although is considered less likely. Multiple enlarged colonic/ileocolic lymph nodes are probably reactive however a neoplastic process cannot be completely excluded in the setting of ulcerative colitis. Multifocal luminal narrowing within the right colon is likely due to inflammation although underlying mucosal lesion cannot be excluded. GI consultation for consideration for colonoscopy is recommended. -- Stool studies negative. --S/P Colonoscopy:Anal fissure. Severe colitis in examined portion of colon. Low left sided stricture that could not be traversed. --S/P EGD:Normal esophagus. Normal stomach. Normal examined duodenum. The examined portion of the jejunum was normal. Biopsies randomly from the small intestine were obtained. GI consulted given IV Solu-Medrol 40mg IV BID Protonix Ciprofloxacin Hepatitis B, Quantiferon TB: negative 09/22 Received first dose of infliximab 09/20 abdominal pain resolved Diarrhea resolved Tolerating diet well Discussed with GI continue Slow Prednisone taper at home Prednisone 40mg daily x 1 week, then 30mg daily x 1 week, etc. Cipro X 2 days Protonix Infliximab in 7-10 days c/o GI Lactose-free diet As needed Levsin ordered Iron deficiency anemia Received IV Venofer repeat CBC and Iron level on ff up with PCP in 1 week Severe protein calorie malnutrition H/O Celiac disease Admits to being noncompliant with celiac diet BMI 16.8 Dietitian consulted Continue soft diet 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 HbA1c is 6.5 in 10/2020 Not on medications HbA1c unreliable secondary to anemia BSG 145-170 while on IV steroids Monitor closely while on Prednisone Syncope Mostly vasovagal. DVT Px: SCDs for now plan of care discussed with patient and his parents all questions answered They are understanding, agreeable, comfortable with the plan of care Total Time Total Time Spent Total Time Spent (In Minutes): >30 minutes Discharge Plan Discharge Items Patient Disposition: Home - Self-Care Reason For Visit: DIARRHEA Discharge Diagnosis: COLITIS, SUSPECTED INFLAMMATORY BOWEL DISEASE, LIKELY CROHN'S DISEASE Activity: Resume your previous activity Non-emergency contact: Primary Care Provider Call non-emergency contact if: you have any medication questions, your symptoms worsen, your pain is not controlled, your pain is worsening, your pain is unusual for you, your pain is concerning for you and you have a fever Follow-up/Referrals: Soham Zuñiga DO [Primary Care Provider] - (Date & Time 09/28/2021 11:20 AM Provider Sweta Mejía DO Department [facility] ) Duke Mccauley MD [Physician] - Diet: Gluten Free, Low Fiber and Lactose Intolerant Addtl Attending Provider Instructions: PLEASE REFER TO YOUR NEW MEDICATION LIST AND FOLLOW INSTRUCTIONS CAREFULLY. YOUR NEW MEDICATIONS INCLUDE: PREDNISONE TAPER Prednisone 40mg daily x 1 week, 30mg daily x 1week, 20mg daily x 1 week, 15mg daily x 1 week, 10mg daily x 1 week, 5mg daily x 1 week. PROTONIX CIPROFLOXACIN PLEASE CALL YOUR PRIMARY CARE PHYSICIAN OR RETURN TO THE ER IF WITH WORSENING OF SYMPTOMS, INCLUDING WORSENING OF ABDOMINAL PAIN, NAUSEA/VOMITING, DIARRHEA, FEVER/CHILLS, WEAKNESS, POOR INTAKE. FOLLOW UP WITH PRIMARY CARE PHYSICIAN OUTLINED ABOVE. FOLLOW UP WITH IMPREGNATING TANK OPERATOR IN 7-10 DAYS FOR 2nd Infliximab induction dose. Pending Studies at Discharge: No Stand-Alone Forms: My [facility], Smoking Cessation Medications and DC Order Prescriptions: New ciprofloxacin HCl 500 mg Tablet 500 mg PO Q12H Qty: 5 RF: 0 hyoscyamine sulfate [Levsin] 0.125 mg Tablet 0.125 mg sublingual Q6H PRN (Reason: ABDOMINAL CRAMPING) Qty: 14 RF: 0 zinc sulfate [Orazinc] 50 mg zinc (220 mg) Capsule 220 mg PO QAM Qty: 30 RF: 1 pantoprazole 40 mg Tablet,Delayed Release (Dr/Ec) 40 mg PO QAM Qty: 30 RF: 1 prednisone 10 mg tablet 10 mg PO UD Qty: 84 RF: 0 Continued dietary supplement Tablet 1 tab PO DAILY RF: 0 Discontinued dicyclomine 10 mg capsule 10 mg PO BID RF: 0 Discharge Orders: Discharge Order (Routine); Ordered 09/22/21 Ordered By: Veto Douglas/Other Patient Handouts: A1C, Gluten-Free Diet for Celiac Disease, Your Child Has Crohn's Disease Admission Data Admit Date/Time: 09/15/21 15:28 Attending Provider: Veto Pinto Admit Provider: Dao Montgomery Primary Care Provider: Soham Zuñiga Other Providers: Dao Montgomery ; Ahsan Schreiber ; Diandra Lepe ; Pilo Wilcox ; Layne Anderson ; Hector Mcgraw ; Licha Thomas ; Kota Sweet ; Duke Mccauley ; Glenna Durham ; Madyson Lindo ; Sonia Wilkes ; Azucena Tabares ; Mark Gonzalez ; Kostas Osman Other Interventions: Discharge Summary Assessment (RN) Last Done: 09/22/21 09:56
== END 2021-09-22 11:22 | disposition home or self-care (01) | DRG 385 ==
LOC: ED 08:27 → SUATTDRO 15:28 → EDINP 15:28 → 2S 17:49